=== PATIENT | male | born 1960 | race Caucasian/White ===

== ENCOUNTER 2017-04-26 13:08 | Emergency (ER) | payer MEDICARE, MEDICAID ==
[~2017-04-26] VITALS: Ht 175.3 cm; Wt 116.0 kg
[~2017-04-26 13:08] MED LIST: ASPI81TA63; ASPI81TA83 OR; ATEN50TA2; ATEN50TA2 OR; CETI10TA; DEPA500T; DEPA500T OR; GEOD60CA; GEOD60CA OR; LASI20TA PO; LISI10TA4; TRAZ100T OR; TRAZ150T; ZIPR80CAP OR; prolixin IM
[2017-04-26] MEDS ORDERED: DIVA250T7 PO (13:23)
[2017-04-26] MEDS ORDERED: METO1TAB32 PO (13:23)
[2017-04-26] MEDS ORDERED: ARIS1.6I SC (13:23)
[2017-04-26] MEDS ORDERED: LISI10TA4 PO (13:23)
[2017-04-26] MEDS ORDERED: PANT40TA2 PO (13:23)
[2017-04-26] MEDS ORDERED: BENZ-52 PO (13:23)
[2017-04-26] MEDS ORDERED: FLUTISP (13:23)
[2017-04-26 15:00] LABS: MEAN CORPUSCULAR HEMOGLOBIN 30.9 pg (27.0-33.0); MEAN CORPUSCULAR HGB CONC 33.6 g/dl (32.0-36.5); PLATELET COUNT, AUTOMATED 187 10^3/uL (150-450); RED CELL DISTRIBUTION WIDTH 13.2 % (11.5-14.5); WHITE BLOOD COUNT 7.9 10^3/uL (4.0-10.0)
[2017-04-26 15:28] LABS: ALBUMIN 3.7 GM/DL (3.2-5.2); ALBUMIN/GLOBULIN RATIO 1.06 (1.00-1.93); ALKALINE PHOSPHATASE 100 U/L (45-117); ALT/SGPT 24 U/L (12-78); ANION GAP 7 MEQ/L (8-16); AST/SGOT 12 U/L (15-37); BILIRUBIN,DIRECT 0.1 MG/DL (0.0-0.2); BILIRUBIN,TOTAL 0.5 MG/DL (0.2-1.0); BLOOD UREA NITROGEN 18 MG/DL (7-18); CALCIUM LEVEL 9.4 MG/DL (8.5-10.1); CARBON DIOXIDE LEVEL 28 MEQ/L (21-32); CHLORIDE LEVEL 104 MEQ/L (98-107); CREATININE FOR GFR 1.35 MG/DL (0.70-1.30); GLUCOSE, FASTING 160 MG/DL (70-105); POTASSIUM SERUM 4.5 MEQ/L (3.5-5.1); SODIUM LEVEL 139 MEQ/L (136-145); TOTAL PROTEIN 7.2 GM/DL (6.4-8.2)
[2017-04-26 16:49] LABS: METHADONE URINE NEGATIVE (NEGATIVE)
[2017-04-26] MEDS ORDERED: PANTOPRAZOLE 40MG TAB (PROTONIX) PO ONE (20:30)
[2017-04-26] MEDS ORDERED: LISINOPRIL 10 MG TAB PO ONE (20:30)
[2017-04-26] MEDS ORDERED: BENZTROPINE 0.5 MG TAB PO ONE (20:30)
[2017-04-26] MEDS ORDERED: DIVALPROEX 250 MG TAB PO ONE (20:30)
[2017-04-26] MEDS ORDERED: ASPI81CH PO (20:46)
[2017-04-26] MEDS ORDERED: PATIENT COMMENT (20:46)
[2017-04-27] MEDS ORDERED: OLANZapine INTRAMUSCULAR 10 MG VIAL (S0166) IM ONE (01:00)
[2017-04-27 02:11] VITALS: BP 179/90
--- NOTE | 2017-04-27 07:21 | ECGEPIP ---
Stationary ECG Study [facility] - ED Test Date: 2017-04-27 Pat Name: REMY ALVARADO Department: Room: - Gender: M Bulker: : 1960 Requested By: JAMIE Maloney Order Number: [id number] Reading MD: Braxton Lopez Measurements Intervals Armstrong Rate: 70 P: 41 [place]: 140 QRS: 5 QRSD: 94 T: 46 QT: 393 QTc: 425 Interpretive Statements SINUS RHYTHM NO PRIORS Electronically Signed On 04-27-2017 7:21:33 EDT by Braxton Lopez
== END 2017-04-27 02:31 ==
LOC: M ED 13:08
DX: F99 Mental disorder, not otherwise specified (principal); E11.9 Type 2 diabetes mellitus without complications; I11.0 Hypertensive heart disease with heart failure; I50.9 Heart failure, unspecified; F20.9 Schizophrenia, unspecified; M10.9 Gout, unspecified; K21.9 Gastro-esophageal reflux disease without esophagitis; Z79.899 Other long term (current) drug therapy; Z79.82 Long term (current) use of aspirin; Z88.8 Allergy status to other drugs, medicaments and biological substances; Z91.018 Allergy to other foods; J30.89 Other allergic rhinitis; Z87.891 Personal history of nicotine dependence
CPT/HCPCS: 36415; 80048; 80076; 80307; 84443; 85027; 93005; 96372; 99285; G0480

== ENCOUNTER → 2018-05-02 | Outpatient (REF) | payer MEDICARE, MEDICAID ==
[2018-05-02 12:27] LABS: BASO # 0.1 10^3/uL (0.0-0.2); EOS # 0.4 10^3/uL (0.0-0.50); EOS % 4.8 % (0.0-3.0); HEMATOCRIT 40.7 % (42.0-52.0); HEMOGLOBIN 13.5 g/dl (13.5-17.5); IMMATURE GRANULOCYTE % 0.3 % (0-3.0); LYMPH # 3.1 10^3/uL (1.5-4.5); LYMPH % 35.3 % (24.0-44.0); MEAN CORPUSCULAR HGB CONC 33.2 g/dl (32.0-36.5); MEAN CORPUSCULAR VOLUME 93.3 fl (80.0-96.0); MONO # 1.1 10^3/uL (0.0-0.8); MONO % 11.8 % (0.0-5.0); NEUTROPHILS # 4.2 10^3/uL (1.8-7.7); NEUTROPHILS % 46.8 % (36.0-66.0); PLATELET COUNT, AUTOMATED 238 10^3/uL (150-450); RED BLOOD COUNT 4.36 10^6/uL (4.30-6.10); RED CELL DISTRIBUTION WIDTH 12.5 % (11.5-14.5); WHITE BLOOD COUNT 8.9 10^3/uL (4.0-10.0)
[2018-05-02 12:37] LABS: ESTIMATED AVERAGE GLUCOSE 192 MG/DL (60-110); HEMOGLOBIN A1c 8.3 %
[2018-05-02 17:08] LABS: ALBUMIN 3.4 GM/DL (3.2-5.2); ALKALINE PHOSPHATASE 114 U/L (45-117); ALT/SGPT 29 U/L (12-78); ANION GAP 9 MEQ/L (8-16); AST/SGOT 17 U/L (7-37); BILIRUBIN,DIRECT 0.1 MG/DL (0.0-0.2); BILIRUBIN,TOTAL 0.4 MG/DL (0.2-1.0); BLOOD UREA NITROGEN 15 MG/DL (7-18); CALCIUM LEVEL 9.3 MG/DL (8.5-10.1); CARBON DIOXIDE LEVEL 29 MEQ/L (21-32); CHLORIDE LEVEL 104 MEQ/L (98-107); CHOLESTEROL LEVEL 129 MG/DL (<200); CHOLESTEROL RISK RATIO 2.744 (<5); GLOMERULAR FILTRATION RATE > 60.0 (>56); GLUCOSE, FASTING 156 MG/DL (70-100); HDL CHOLESTEROL 47 MG/DL (>40); LDL CHOLESTEROL 48 MG/DL (<100); NON-HDL-C 82 MG/DL; PHOSPHORUS LEVEL 3.6 MG/DL (2.5-4.9); POTASSIUM SERUM 4.3 MEQ/L (3.5-5.1); SODIUM LEVEL 142 MEQ/L (136-145); TOTAL PROTEIN 6.8 GM/DL (6.4-8.2); TRIGLYCERIDES LEVEL 171 MG/DL (<150)
[2018-05-02 17:16] LABS: TOTAL 25(OH) VITAMIN D 20.4 NG/ML (30.0-100.0)
== END ==
LOC: M LABDRAWC 09:09
DX: F20.9 Schizophrenia, unspecified (principal)
CPT/HCPCS: 82248

== ENCOUNTER 2018-08-19 12:41 | Inpatient (IN) | payer MEDICARE, MEDICAID ==
[~2018-08-19] VITALS: Ht 175.3 cm; Wt 116.0 kg
[~2018-08-19 12:41] MED LIST changes: +ARIS1.6I SC; +ASPI81CH PO; +BENZ-52 PO; +DIVA250T7 PO; +FLUTISP; +LISI10TA4 PO; +METO1TAB32 PO; +PANT40TA3 PO; +PATIENT COMMENT
[2018-08-19] MEDS ORDERED: ATOR40TA75 PO (13:19)
[2018-08-19] MEDS ORDERED: HYDROCHLOROTHIAZIDE PO (13:19)
[2018-08-19] MEDS ORDERED: INVE156I IM (13:19)
[2018-08-19] MEDS ORDERED: LISI40TA PO (13:19)
[2018-08-19] MEDS ORDERED: CHLOROTHIAZIDE PO (13:19)
[2018-08-19] MEDS ORDERED: ZYPR10TA PO (13:19)
[2018-08-19] MEDS ORDERED: METFORMIN PO (13:19)
[2018-08-19 13:30] VITALS: BP 192/96
[2018-08-19] MEDS ORDERED: cloNIDine 0.1 MG TAB PO ONE (13:30)
--- NOTE | 2018-08-19 13:57 | REP ---
Chest two views HISTORY: Hemoptysis Comparison: 04/26/2007 The lungs are clear. The heart is normal in size. The pulmonary vasculature is normal in appearance. The bony structure is intact. IMPRESSION: No acute disease. Electronically Signed by Scar Burnette MD 08/19/2018 01:48 P
--- NOTE | 2018-08-19 14:05 | REP ---
A CT of the abdomen and pelvis without IV and oral contrast: There are no comparisons. The visualized lower lung weber are unremarkable. The unenhanced hepatic parenchyma is unremarkable. The gallbladder, pancreas and spleen are unremarkable. The adrenals are unremarkable. The right and left kidneys are unremarkable except for A 1.7 cm in exophytic simple cyst at the mid pole of the right kidney. The abdominal aorta is unremarkable. There are normal-sized periaortic nodes. There is no bowel distension or obstruction. No diverticulitis or diverticulosis. Pelvis: The appendix is unremarkable. The bladder is unremarkable. There is no adenopathy or ascites. There are multiple nodules in the subcutaneous fat of the buttocks bilaterally, likely injection granulomas. Multiple level degenerative disc disease in the lumbar and lower thoracic spine. Impression: Multiple injection granulomas in the subcutaneous fat of the buttocks bilaterally. Otherwise, negative CT of the abdomen and pelvis. Electronically Signed by Sb Escalante MD 08/19/2018 01:55 P
[2018-08-19 14:35] LABS: MB/CK RELATIVE INDEX 2.58 (< OR =4); TROPONIN I 0.02 NG/ML (< 0.10)
[2018-08-19 14:41] LABS: ACETAMINOPHEN LEVEL < 2.0 UG/ML (10.0-30.0); ALBUMIN 3.4 GM/DL (3.2-5.2); ALT/SGPT 34 U/L (12-78); BILIRUBIN,DIRECT 0.1 MG/DL (0.0-0.2); BILIRUBIN,TOTAL 0.4 MG/DL (0.2-1.0); BLOOD UREA NITROGEN 17 MG/DL (7-18); CALCIUM LEVEL 9.6 MG/DL (8.5-10.1); CARBON DIOXIDE LEVEL 30 MEQ/L (21-32); CHLORIDE LEVEL 101 MEQ/L (98-107); CREATININE FOR GFR 1.21 MG/DL (0.70-1.30); ETHYL ALCOHOL (ETHANOL) < 0.003 % (0.000-0.010); GLOMERULAR FILTRATION RATE > 60.0 (>56); GLUCOSE, FASTING 358 MG/DL (70-100); POTASSIUM SERUM 4.3 MEQ/L (3.5-5.1); SALICYLATE LEVEL 1.9 MG/DL (5.0-30.0); SODIUM LEVEL 136 MEQ/L (136-145); THYROID STIMULATING HORMONE 0.918 uIU/ML (0.358-3.740); TOTAL PROTEIN 6.9 GM/DL (6.4-8.2)
[2018-08-19 14:58] LABS: HEMATOCRIT 38.6 % (42.0-52.0); HEMOGLOBIN 13.1 g/dl (13.5-17.5); MEAN CORPUSCULAR HEMOGLOBIN 30.4 pg (27.0-33.0); MEAN CORPUSCULAR HGB CONC 33.9 g/dl (32.0-36.5); MEAN CORPUSCULAR VOLUME 89.6 fl (80.0-96.0); PLATELET COUNT, AUTOMATED 221 10^3/uL (150-450); RED BLOOD COUNT 4.31 10^6/uL (4.30-6.10); WHITE BLOOD COUNT 9.6 10^3/uL (4.0-10.0)
[2018-08-19] MEDS ORDERED: HumuLIN R (REGULAR) INSULIN (NovoLIN R) **100U/ML** PER UNIT SC STA (16:10)
[2018-08-19] MEDS ORDERED: HYDR25TAB PO (16:23)
[2018-08-19] MEDS ORDERED: METF500T4 PO (16:23)
[2018-08-19 18:31] LABS: AMPHETAMINES LEVEL URINE NEGATIVE (NEGATIVE); BARBITURATES URINE NEGATIVE (NEGATIVE); BENZODIAZEPINES URINE NEGATIVE (NEGATIVE); CANNABINOIDS URINE NEGATIVE (NEGATIVE); COCAINE METABOLITE URINE NEGATIVE (NEGATIVE); METHADONE URINE NEGATIVE (NEGATIVE); OPIATES URINE NEGATIVE (NEGATIVE); PHENCYCLIDINE URINE NEGATIVE (NEGATIVE)
[2018-08-19] MEDS ORDERED: HumuLIN R (REGULAR) INSULIN (NovoLIN R) **100U/ML** PER UNIT IV ONE (19:15)
[2018-08-19] MEDS ORDERED: metFORMIN (GLUCOPHAGE) 500 MG TAB PO ONE (19:45)
[2018-08-19] MEDS ORDERED: OLANZapine 10 MG TAB PO ONE (19:45)
[2018-08-19] MEDS ORDERED: MAALOX 30 ML SUSP *UDC PO PRN (20:45)
[2018-08-19] MEDS ORDERED: MOM 30ML SUSPENSION UDC PO PRN (20:45)
[2018-08-19] MEDS ORDERED: ACETAMINOPHEN TAB 650MG DOSE (2X325MG) PO PRN (20:45)
[2018-08-19] MEDS ORDERED: traZODone 50 MG TAB PO PRN (20:45)
[2018-08-19] MEDS ORDERED: ACETAMINOPHEN TAB 650MG DOSE (2X325MG) PO ONE (21:30)
[2018-08-19 23:15] VITALS: BP 148/90
[2018-08-20] MEDS: ASPIRIN 81 MG ENTERIC TAB PO SCH ×2 (00:39→21:00)
[2018-08-20] MEDS ORDERED: FLUBLOK(EGG FREE)(QUAD)INFLUENZA VACC 0.5ML SYRINGE (90682)18YRS&OLDER IM ONE (09:00)
[2018-08-20] MEDS: NICOTINE 21MG/24HR 1 EA TRANSDERMAL TD SCH (09:00)
[2018-08-20] MEDS: ATORVASTATIN 20 MG TAB PO SCH (09:00)
[2018-08-20] MEDS: LISINOPRIL 40 MG TAB PO SCH (09:00)
[2018-08-20] MEDS: hydroCHLOROthiazide 25 MG TAB PO SCH (09:00)
[2018-08-20] MEDS ORDERED: GLUCOSE 4 GM CHEW TABLET PO PRN (10:30)
[2018-08-20] MEDS ORDERED: GLUCAGON FOR INJ 1 MG VIAL (J1610) SC PRN (10:30)
[2018-08-20] MEDS ORDERED: DEXTROSE 50% 50 ML SYRINGE IV PRN (10:30)
--- NOTE | 2018-08-20 10:37 | HPEPDOC ---
[facility] Medical History & Physical Date of Admission Aug 19, 2018 History and Physical PCP: Dr Benjamin ATTENDING: Dr. Sterling Miranda HPI: 58 yo M admitted to [facility] for schizophrenia, being medically examined today. Patient has been noted to be agitated this morning, yelling in the hallway, refused morning medication. Patient declines to participate with history or physical exam at this time, history is taken from the chart. According to emergency department records the patient had presented with TLS staff reporting chest aching however the patient went on to describe "spiders rooting in my nasal cavity and feeding on a piece of meat in my esophagus". The pt has not reported any further chest discomfort to staff at this time. TLS staff in the emergency department reported the patient had been refusing some of his medications recently. PMHx: Hypertension Dyslipidemia NIDDM Allergic rhinitis Schizophrenia Unsteady gait, uses cane PSHX: None SOCHX: Resides in: [facility] Marital Status: Single Kids: None Employment: Unemployed Tobacco use: Smoker ETOH: Denies Illicit Drugs: Denies IV Drug Use: Denies Tattoos done unprofessionally: Denies FAMHX: Patient is unable to provide history at this time. ROS: Patient declines to provide any additional history at this time. PE: The pt is noted to be pacing in the hallway, agitated. Ambulating with a cane, appears steady on feet. Vital Signs Label Value Date Time Patient Temperature 97.9 degrees F 08/19/182314 Temperature Source Temporal 08/19/182314 Pulse 89 08/19/182314 Respiratory Rate 20 bpm 08/19/182314 Blood Pressure Assessment 148/90 (109) 08/19/182314 Bedside Pulse Oximetry 99 % 08/19/181947 Item Value Date Time Oxygen Delivery Method Room Air 08/19/181947 EKG: pending A&P: 58 yo M admitted to [facility] for schizophrenia 1. Psych. Plan per Psychiatry. Obtain baseline EKG to assure the safety of psychiatric medications as they can prolong the QT interval. 2. Nicotine dependence. Patch available. 3. NIDDM. Consistent carbohydrate diet. Continue metformin 500 mg daily. SSI before meals, at bedtime. Add hemoglobin A1c to labs. 4. Follow up with PCP on discharge. 5. Obesity. BMI 37.8. Complicates care. TSH is noted within normal limits. 6. Hypertension. Continue aspirin 81 mg daily. Continue lisinopril 40 mg by mouth daily. Continue hydrochlorothiazide 25 mg by mouth daily. Patient is refusing to take his medications at this time. Monitor. 7. Dyslipidemia. Continue atorvastatin 40 mg by mouth daily. 8. Unsteady gait. Patient uses a cane to assist with ambulation. PT evaluation pending. Fall precautions. 9. Chest discomfort. Pt has not reported any further discomfort. EKG pending. CIP/trop in ED unremarkable. 10. Staff member Angelo assisted in attempting exam. Vital Signs Vital Signs Date Time Temp Pulse Resp B/P (MAP) Pulse Ox O2 Delivery O2 Flow Rate FiO2 08/19/18 23:15 97.9 89 20 148/90 (109) 08/19/18 19:48 99 Room Air Laboratory Data Labs 24H Laboratory Tests 2 08/19/18 13:36: Nucleated Red Blood Cells % (auto) 0.0, Anion Gap 5L, Glomerular Filtration Rate > 60.0, Calcium Level 9.6, Aspartate Amino Transf (AST/SGOT) 18, Alanine Aminotransferase (ALT/SGPT) 34, Alkaline Phosphatase 120H, Total Bilirubin 0.4, Direct Bilirubin 0.1, Total Creatine Kinase 151, Creatine Kinase MB 4.0H, Creatine Kinase MB Relative Index 2.58, Troponin I 0.02, Total Protein 6.9, Albumin 3.4, Albumin/Globulin Ratio 0.97L, Thyroid Stimulating Hormone (TSH) 0.918, Salicylates Level 1.9L, Urine Amphetamines Screen NEGATIVE, Urine Benzodiazepines Screen NEGATIVE, Urine Opiates Screen NEGATIVE, Urine Methadone Screen NEGATIVE, Acetaminophen Level < 2.0L, Urine Barbiturates Screen NEGATIVE, Urine Phencyclidine Screen NEGATIVE, Urine Cocaine Metabolite Screen NEGATIVE, Urine Cannabinoids Screen NEGATIVE, Ethyl Alcohol Level < 0.003 08/19/18 17:23: Bedside Glucose (Misc Panel) 307H 08/19/18 19:15: Bedside Glucose (Misc Panel) 367H 08/19/18 21:32: Bedside Glucose (Misc Panel) 176H CBC/BMP Laboratory Tests 08/19/18 13:36 Red Blood Count 4.31, Mean Corpuscular Volume 89.6, Mean Corpuscular Hemoglobin 30.4, Mean Corpuscular Hemoglobin Concent 33.9, Red Cell Distribution Width 12.4 Home Medications Scheduled (Aspirin) 81 Mg Chw, 81 MG PO QHS Atorvastatin Calcium (Atorvastatin Calcium) 40 Mg Tab, 40 MG PO DAILY Hydrochlorothiazide (Hydrochlorothiazide) 25 Mg Tab, 25 MG PO DAILY Lisinopril (Lisinopril) 40 Mg Tab, 40 MG PO DAILY Metformin Hydrochloride (Metformin HCl ER) 500 Mg Tab, 500 MG PO QHS Olanzapine (Zyprexa) 10 Mg Tab, 10 MG PO QHS Paliperidone Palmitate (Invega Sustenna) 156 Mg/Ml Inj, 156 MG IM QMONTH Allergies Coded Allergies: Ambrosia Artemisiifolia (Ragweed) (Verified Allergy, Unknown, 10/08/12) Ascorbic Acid & Derivatives (Verified Allergy, Unknown, 10/08/12) Benztropine (Verified Allergy, Unknown, 10/08/12) Pork (Verified Allergy, Unknown, 12/30/06) Red Dye (Verified Allergy, Unknown, IN BENADRYL, 10/08/12) Diphenhydramine (Verified Adverse Reaction, Unknown, 04/26/17) Haloperidol (Verified Adverse Reaction, Unknown, EPS (CAN'T STOP MOVING), 10/08/12) Carolyn Toth Aug 20, 2018 10:37
[2018-08-20] MEDS: HumaLOG INSULIN (NovoLOG) PER UNIT SC SCH ×3 (12:00→21:00)
--- NOTE | 2018-08-20 14:07 | MHHPEPDOC ---
General Date Of Admission: Aug 19, 2018 Legal Status: 9.39 Chief Complaint As per ED report: "I was coughing up blood" History of Present Illness HISTORY OF THE PRESENT ILLNESS: Patient is a 58 -year-old , male, who as per ED report: "Patient arrived w/complaints of cardiac issues, which have been evaluated & cleared medically. During medical evaluation he reported having spiders inside of his body, as well as other bizarre/deluded ideas. During MHE patient was calm & sleepy, although remained awake to adequately interview. He continued to express belief that he has spiders throughout his upper body, including "nests" in his nasal passages & "colonies" feeding on meat lodged in his esophagus. Patient was able to accurately verbalize his orientation x 3, however much of what he reported otherwise was rambling, tangential & incoherent. Staff from [facility] advised that patient has been refusing some of his regular meds, which patient admitted as well. He then proceeded to offer a reason for this, which contained no logic & could not be easily followed. On direct query, patient stated that he has been sleeping fine, however staff member refuted this & suggested that patient has not been sleeping well at all. Patient is known to this insurance underwriter sales from many previous ED interactions. When ill (both acutely & chronically), patient almost always references spiders in one way or another. Staff reports that patient had been at his baseline & doing well until fairly recently, when he began refusing some meds. She reports that he has been in decline since, noting that he was actually scheduled for his IM meds in he clinic today (which he missed because he was here).". Psychiatric Review of Systems Depression (2 or more weeks): other (Patient is psychotic, he can't give me reliable information) Jeanie (4 or more days of): denies (Patient is psychotic, he can't provide reliable information) Psychosis: delusions (He thinksthere's spiders living inside of him, eating his flesh, his internal organs, causing him bleeding), paranoia, other (He might be experiencing auditory and visual hallucinations) PTSD: other (Unknown. Patient is psychotic, he can't provide with reliable information) Anxiety: other (He can't provide reliable information because he is psychotic) Anxiety/ 6 months or more of: other (patient is psychotic, he can't provide with psychiatric information) Past Psychiatric History Previous Psychiatric Diagnosis: Schizoaffective disorder, schizophrenia, paranoid type Previous Psychiatric Admissions: Patient has been hospitalized several times at different hospitals including [facility] Suicide Attempts: Unknown Psychiatric Follow-up: Lives at [facility] Psychiatric medications: Apparently yesterday he was due for his Invega Sustenna 156 mgs., but he missed it. Past Medical History Medical Problems Unknown, patient is psychotic at this time, he can't provide reliable information Hospitalizations: Yes Family Medical/Psychiatric HX Medical Problems Unknown. Patient is psychotic at this time, he can't provide with reliable information Addiction History other (Unknown. Patient is psychotic, he can't provide reliable information) Social History Childhood: Unknown, patient is psychotic, he can't provide reliable information Abuse/Trauma: unknown, patient is psychotic, he can't provide reliable information Current Living Situation: Lives at [facility] Education: Unknown. Employment: Unemployed, patient is disabled Social Support: [facility] staff Legal: Unknown Marital: Unknown Mental Status Examination General Appearance: unkempt, disheveled, hospital scubs/clothing Build: overweight Demeanor: mistrustful, guarded Eye Contact: intense Activity: anxious, hostile Behavior: cooperative, resistant, agitated Speech: slurred, spontaneous Mood: anxious, angry, irritable Affect: inappropriate, labile, congruent, anxious, hostile, disorganized Thought Process: incoherent, circumstantial, tangential, loose Thought Content (Delusions): somatic Thought Content (Other): preoccupied, internal-stimuli, appears paranoid Thought Content (Aggressive): none reported Perception (Hallucinations): other (He might be experiencing hallucinations) Perception (Other): none reported Cognition (Impairment of): memory, attention/concentration Cognition(Intelligence Est.): average Oriented: Awake, Alert Insight: poor Judgment: Poor Psychosis: Associations, Abstract Thinking, Psychotic Perceptions Diagnoses 1. Paranoid schizophrenia Assessment Patient has refused to eat, he refuses to take his medications but he told me that he would take his Lisinopril 40 mgs and Zyprexa 10 mgs. when I talked to him about his Invega DALTON, he said he would probably take it if he would eat but if he would eat the right lettuce, but they keep giving the wrong lettuce, he says he might get intoxicated. Patient doesn't want to give up his cane, tw asked him to exchange it for a walker but he refused. Initial Treatment Plan 1. Patient was admitted on a [9.39] status. 2. Complete history was obtained. 3. With patients permission, family will be contacted and database will be expanded. 4. Patients medication regimen will be reviewed and changed accordingly. 5. Patient will be provided with protected environment. 6. Patient will be treated with individual, group, and milieu therapies. 7. Patient will receive supportive psych-education. 8. Discharge planning will commence immediately. 9. Outpatient follow-up treatment will be strongly recommended. 10. The initial treatment plan will focus initially on: * altered thoughts * altered perceptions * Risk for self harm * risk for harming other people ESTIMATED LENGTH OF STAY: 5-7 DAYS. TIME SPENT COUNSELING AND COORDINATING INITIAL CARE: 45 minutes. Vital Signs Vital Signs Date Time Temp Pulse Resp B/P (MAP) Pulse Ox O2 Delivery O2 Flow Rate FiO2 08/19/18 23:15 97.9 89 20 148/90 (109) 08/19/18 19:48 99 Room Air Laboratory Data 24H Labs Laboratory Tests 2 08/19/18 17:23: Bedside Glucose (Misc Panel) 307H 08/19/18 19:15: Bedside Glucose (Misc Panel) 367H 08/19/18 21:32: Bedside Glucose (Misc Panel) 176H Medications Scheduled (Aspirin) 81 Mg Chw, 81 MG PO QHS, (Reported) Atorvastatin Calcium (Atorvastatin Calcium) 40 Mg Tab, 40 MG PO DAILY, (Reported) Hydrochlorothiazide (Hydrochlorothiazide) 25 Mg Tab, 25 MG PO DAILY, (Reported) Lisinopril (Lisinopril) 40 Mg Tab, 40 MG PO DAILY, (Reported) Metformin Hydrochloride (Metformin HCl ER) 500 Mg Tab, 500 MG PO QHS, (Reported) Olanzapine (Zyprexa) 10 Mg Tab, 10 MG PO QHS, (Reported) Paliperidone Palmitate (Invega Sustenna) 156 Mg/Ml Inj, 156 MG IM QMONTH, (Reported) Allergies Coded Allergies: Ambrosia Artemisiifolia (Ragweed) (Verified Allergy, Unknown, 10/08/12) Ascorbic Acid & Derivatives (Verified Allergy, Unknown, 10/08/12) Benztropine (Verified Allergy, Unknown, 4/2/13) Pork (Verified Allergy, Unknown, 12/30/06) Red Dye (Verified Allergy, Unknown, IN BENADRYL, 10/08/12) Diphenhydramine (Verified Adverse Reaction, Unknown, 04/26/17) Haloperidol (Verified Adverse Reaction, Unknown, EPS (CAN'T STOP MOVING), 10/08/12) VU GOULD MD Aug 20, 2018 14:07
--- NOTE | 2018-08-20 18:52 | ECGEPIP ---
Stationary ECG Study [facility] - ED Test Date: 2018-08-19 Pat Name: REMY ALVARADO Department: Room: - Gender: M Land Title Examiner: : 1960 Requested By: Zaida Zhang Order Number: [id number] Reading MD: Zaida Zhang Measurements Intervals Cressey Rate: 76 P: 64 NC: 145 QRS: 22 QRSD: 101 T: 56 QT: 395 QTc: 444 Interpretive Statements SINUS RHYTHM SIMILAR 04/27/17 Electronically Signed On 08-20-2018 18:52:06 EST by Zaida Zhang
[2018-08-20] MEDS: OLANZapine 10 MG TAB PO SCH (21:00)
[2018-08-20] MEDS: metFORMIN XR 500MG TAB *GLUCOPHAGE XR PO SCH (21:00)
[2018-08-21] MEDS: HumaLOG INSULIN (NovoLOG) PER UNIT SC SCH ×4 (06:35→21:00)
[2018-08-21 06:39] VITALS: BP 146/66
[2018-08-21 08:53] LABS: HEMATOCRIT 40.7 % (42.0-52.0); HEMOGLOBIN 13.8 g/dl (13.5-17.5); MEAN CORPUSCULAR HEMOGLOBIN 30.9 pg (27.0-33.0); MEAN CORPUSCULAR HGB CONC 33.9 g/dl (32.0-36.5); MEAN CORPUSCULAR VOLUME 91.1 fl (80.0-96.0); PLATELET COUNT, AUTOMATED 218 10^3/uL (150-450); RED BLOOD COUNT 4.47 10^6/uL (4.30-6.10); WHITE BLOOD COUNT 8.6 10^3/uL (4.0-10.0)
[2018-08-21] MEDS ORDERED: PALIPERIDONE PALMITATE 234 MG/1.5 ML INJ (INVEGA SUSTENNA)(J2426) IM SCH (09:00)
[2018-08-21] MEDS: NICOTINE 21MG/24HR 1 EA TRANSDERMAL TD SCH (09:00)
[2018-08-21] MEDS ORDERED: PALIPERIDONE PALMITATE 156 MG/1ML INJ(INVEGA SUSTENNA)(J2426) IM SCH (09:00)
[2018-08-21] MEDS: hydroCHLOROthiazide 25 MG TAB PO SCH (09:00)
--- NOTE | 2018-08-21 09:19 | IPNPDOC ---
Date Seen The patient was seen on 08/21/18. Progress Note HPI: 58 yo M admitted to [facility] for schizophrenia, being medically examined today. Patient has been noted to be agitated this morning, yelling in the hallway, refused morning medication. Patient declines to participate with history or physical exam at this time, history is taken from the chart. According to emergency department records the patient had presented with TLS staff reporting chest aching however the patient went on to describe "spiders rooting in my nasal cavity and feeding on a piece of meat in my esophagus". The pt has not reported any further chest discomfort to staff at this time. TLS staff in the emergency department reported the patient had been refusing some of his medications recently. I am requested to reevaluate the patient this morning related to reported hem optysis. According to staff the patient has not had any hemoptysis well on the unit. Occasional cough which has been nonproductive. The patient has continued to refuse all medications. The patient states he had breakfast this morning. He is drinking fluids. He is carrying coffee throughout the halls. The patient denies any hemoptysis, coughing or sputum production and states that previously a cough was related to "a reaction to the bugs I carry". He also again reports he previously had nasal discharge "frpm my bugs". The patient reports no verbalizes concerns at this time. PMHx: Hypertension Dyslipidemia NIDDM Allergic rhinitis Schizophrenia Unsteady gait, uses cane PSHX: None PE: GEN: 58 yo M, appears stated age. Appears unkept. No acute distress. Alert and oriented x 3. HEENT: Normocephalic, atraumatic. Sclera are nonicteric. Conjunctiva without injection. No nasal drainage noted. Moist mucous membranes. Dentition poor. CHEST: Regular rate and rhythm, +S1, +S2 LUNGS: Clear to auscultation bilaterally. No wheezes, rales, or rhonchi. Breathing appears symmetric and easy. Patient is speaking in full sentences. No accessory muscle use. No cough is noted on exam. ABD: Round, soft, non-tender, non-distended. +Bowel sounds throughout. EXT: Pulses 2+ bilaterally dorsalis pedis and radial. No lower extremity edema appreciated. SKIN: Fortine, dry, warm. No rashes. NEURO: Alert and oriented x 3. No focal deficits appreciated. EKG: SINUS RHYTHM SIMILAR 04/27/17 Electronically Signed On 08-20-2018 18:52:06 EST by Zaida Zhang Chest x-ray No acute disease. Electronically Signed by Scar Burnette MD 08/19/2018 01:[address] abdomen/pelvis Multiple injection granulomas in the subcutaneous fat of the buttocks bilaterally. Otherwise, negative CT of the abdomen and pelvis A&P: 58 yo M admitted to [facility] for schizophrenia 1. Psych. Plan per Psychiatry. EKG on file UA with reflex culture pending. 2. Nicotine dependence. Patch available. 3. NIDDM. Consistent carbohydrate diet. Continue metformin 500 mg daily. SSI before meals, at bedtime. Hemoglobin A1c is noted to be 11. Last fingerstick blood sugar 08/19 was noted to be 176. The patient has been refusing to take his medications and refusing fingerstick blood sugar/SSI coverage. Reinforced with the patient today. 4. Follow up with PCP on discharge. 5. Obesity. BMI 37.8. Complicates care. TSH is noted within normal limits. 6. Hypertension. Continue aspirin 81 mg daily. Continue lisinopril 40 mg by mouth daily. Continue hydrochlorothiazide 25 mg by mouth daily. Patient is refusing to take his medications at this time. Monitor. 7. Dyslipidemia. Continue atorvastatin 40 mg by mouth daily. 8. Unsteady gait. Patient uses a cane to assist with ambulation. PT evaluation completed Fall precautions. 9. Chest discomfort. Pt has not reported any further discomfort. EKG on file. CIP/trop in ED unremarkable. 10. Cough/history of hemoptysis. The patient states this has not been occurring for some time and is related to his "bugs." Denies any sputum production at this time. The patient is afebrile. Vital signs have been stable. Respiratory rate 16, heart rate 82, oxygen saturation 99% on room air. Update CBC/CMP Chest x-ray completed on admission 08/19 is noted to be unremarkable. Request CT chest. 11. Anemia. Hemoglobin on admission noted to be 13.1. Update CBC. Request iron studies, B12, folate Request FOB. Monitor. 12. Staff member Angelo assisted in attempting exam. VS, I&O, 24H, Fishbone Vital Signs/I&O Vital Signs Date Time Temp Pulse Resp B/P (MAP) Pulse Ox O2 Delivery O2 Flow Rate FiO2 08/21/18 06:39 97.6 82 16 146/66 (92) 08/19/18 19:48 99 Room Air Laboratory Data 24H LABS Laboratory Tests 2 08/21/18 08:26: Nucleated Red Blood Cells % (auto) 0.0 CBC/BMP Laboratory Tests 08/21/18 08:26 Red Blood Count 4.47, Mean Corpuscular Volume 91.1, Mean Corpuscular Hemoglobin 30.9, Mean Corpuscular Hemoglobin Concent 33.9, Red Cell Distribution Width 12.6 Carolyn Toth Aug 21, 2018 09:19
[2018-08-21] MEDS: LISINOPRIL 40 MG TAB PO SCH (09:22)
[2018-08-21] MEDS: ATORVASTATIN 20 MG TAB PO SCH (09:22)
[2018-08-21 10:14] LABS: ALBUMIN 3.4 GM/DL (3.2-5.2); ALT/SGPT 41 U/L (12-78); BILIRUBIN,TOTAL 0.8 MG/DL (0.2-1.0); BLOOD UREA NITROGEN 13 MG/DL (7-18); CALCIUM LEVEL 9.4 MG/DL (8.5-10.1); CARBON DIOXIDE LEVEL 27 MEQ/L (21-32); CHLORIDE LEVEL 100 MEQ/L (98-107); CREATININE FOR GFR 1.27 MG/DL (0.70-1.30); FERRITIN 168 NG/ML (26-388); FOLATE > 24.0 NG/ML; GLOMERULAR FILTRATION RATE > 60.0 (>56); GLUCOSE, FASTING 304 MG/DL (70-100); IRON (FE) 81 UG/DL (65-175); PERCENT SATURATION 32.9 % (19.7-50.0); POTASSIUM SERUM 4.6 MEQ/L (3.5-5.1); SODIUM LEVEL 136 MEQ/L (136-145); TOTAL IRON BINDING CAPACITY 246 UG/DL (250-450); TOTAL PROTEIN 6.8 GM/DL (6.4-8.2); VITAMIN B12 LEVEL 881 PG/ML
[2018-08-21 18:00] VITALS: BP 147/92
[2018-08-21] MEDS: metFORMIN XR 500MG TAB *GLUCOPHAGE XR PO SCH (21:00)
[2018-08-21] MEDS: ASPIRIN 81 MG ENTERIC TAB PO SCH (21:56)
[2018-08-21] MEDS: OLANZapine 10 MG TAB PO SCH (21:56)
--- NOTE | 2018-08-21 22:00 | MHIPNPDOC ---
[facility] Progress Note Progress Note DATE OF SERVICE: 08/21/18 HISTORY: See below VITAL SIGNS: See below. NEW TEST RESULTS: See below CURRENT MEDICATIONS: See below. MENTAL STATUS EXAMINATION: General Appearance: unkempt, disheveled, hospital scubs/clothing Build: overweight Demeanor: mistrustful, guarded Eye Contact: intense Activity: anxious, hostile Behavior: cooperative, resistant, agitated Speech: slurred, spontaneous Mood: anxious, angry, irritable Affect: inappropriate, labile, congruent, anxious, hostile, disorganized Thought Process: incoherent, circumstantial, tangential, loose Thought Content (Delusions): somatic Thought Content (Other): preoccupied, internal-stimuli, appears paranoid Thought Content (Aggressive): none reported Perception (Hallucinations): other (He might be experiencing hallucinations) Perception (Other): none reported Cognition (Impairment of): memory, attention/concentration Cognition(Intelligence Est.): average Oriented: Awake, Alert Insight: poor Judgment: Poor Psychosis: Associations, Abstract Thinking, Psychotic Perceptions Diagnoses 1. Paranoid schizophrenia ASSESSMENT: The patient continues to exhibit psychotic symptoms but he is less agitated, less anxious and less irritable than yesterday. He accepted to have his long acting injectable form of Invega but instead of 156 mg I ordered 234 mg because I think he needs a stronger dose to control his illness. Overall, he was less anxious, less agitated and less irritable today. He was asking this afternoon when will he be discharged and I responded that I will have to reassess him tomorrow to let him know when he is ready to go back to [facility]. He refused his Zyprexa 10 mg at bedtime MANAGEMENT PLAN: We'll continue with the same treatment plan, patient probably will improve within the next couple of days as a result of receiving his long- acting injectable today. If he would be improved enough tomorrow, this feature writer will consider discharging him to [facility]. TIME SPENT: 15 minutes. Vital Signs Vital Signs Date Time Temp Pulse Resp B/P (MAP) Pulse Ox O2 Delivery O2 Flow Rate FiO2 08/21/18 18:00 97.7 76 18 147/92 (110) 08/19/18 19:48 99 Room Air Laboratory Data 24H Labs Laboratory Tests 2 08/21/18 08:26: Nucleated Red Blood Cells % (auto) 0.0, Anion Gap 9, Glomerular Filtration Rate > 60.0, Blood Urea Nitrogen 13, Creatinine 1.27, Sodium Level 136, Potassium Level 4.6, Chloride Level 100, Carbon Dioxide Level 27, Calcium Level 9.4, Aspartate Amino Transf (AST/SGOT) 36, Alanine Aminotransferase (ALT/SGPT) 41, Alkaline Phosphatase 113, Total Bilirubin 0.8#, Total Protein 6.8, Albumin 3.4, Iron Level 81, Total Iron Binding Capacity 246L, Transferrin % Saturation 32.9, Ferritin 168, Albumin/Globulin Ratio 1.00, Vitamin B12 Level 881, Folate > 24.0 08/21/18 12:05: Bedside Glucose (Misc Panel) 251H 08/21/18 12:55: Urine Color STRAW, Urine Appearance CLEAR, Urine pH 5.0, Urine Specific [place] 1.003, Urine Protein 1+H, Urine Glucose (UA) 3+H, Urine Ketones NEGATIVE, Urine Blood NEGATIVE, Urine Nitrite NEGATIVE, Urine Bilirubin NEGATIVE, Urine Urobilinogen 0.2, Urine Leukocyte Esterase NEGATIVE, Urine WBC (Auto) 1, Urine RBC (Auto) 0, Urine Hyaline Casts (Auto) 0, Urine Bacteria (Auto) NEGATIVE, Urine Squamous Epithelial Cells 0, Urine Sperm (Auto) 08/21/18 16:36: Bedside Glucose (Misc Panel) 265H CBC/BMP Laboratory Tests 08/21/18 08:26 Red Blood Count 4.47, Mean Corpuscular Volume 91.1, Mean Corpuscular Hemoglobin 30.9, Mean Corpuscular Hemoglobin Concent 33.9, Red Cell Distribution Width 12.6, Calcium Level 9.4, Aspartate Amino Transf (AST/SGOT) 36, Alanine Aminotransferase (ALT/SGPT) 41, Alkaline Phosphatase 113, Total Bilirubin 0.8 #, Total Protein 6.8, Albumin 3.4 Current Medications Current Medications Acetaminophen (Tylenol Tab) 650 mg Q6HP PRN PO HEADACHE or DISCOMFORT; Start 08/19/18 at 20:45 Al Hydrox/Mg Hydrox/Simethicone (Mylanta) 30 ml Q4HP PRN PO HEARTBURN/INDIGESTION; Start 08/19/18 at 20:45 Aspirin (Ecotrin) 81 mg QHS PO ; Start 08/20/18 at 00:39 Atorvastatin Calcium (Lipitor) 40 mg DAILY PO Last administered on 08/21/18at 09:22; Start 08/20/18 at 09:00 Dextrose (Dextrose 50%) 25 ml ASDIRECTED PRN IV SEE LABEL COMMENTS; Start 08/20/18 at 10:30 Glucagon (Glucagon) 1 mg ASDIRECTED PRN SC SEE LABEL COMMENTS; Start 08/20/18 at 10:30 Glucose (Glucose) 16 GM ASDIRECTED PRN PO SEE LABEL COMMENTS; Start 08/20/18 at 10:30 Home Med (Med Rec Complete!) ASDIRECTED XX ; Start 08/19/18 at 16:30; Stop 08/19/18 at 16:30; Status DC Hydrochlorothiazide (Hydrodiuril) 25 mg DAILY PO ; Start 08/20/18 at 09:00 Insulin Human Lispro (HumaLOG INSULIN) See Protocol Table AC SC Last administered on 08/21/18at 16:43; Start 08/20/18 at 12:00 Insulin Human Lispro (HumaLOG INSULIN) See Protocol Table QHS SC ; Start 08/20/18 at 21:00 Insulin Human Regular (HumuLIN R INSULIN) 12 units STAT STAT SC Last administered on 08/19/18at 16:10; Start 08/19/18 at 16:10; Stop 08/19/18 at 16:12; Status DC Lisinopril (Prinivil) 40 mg DAILY PO Last administered on 08/21/18at 09:22; Start 08/20/18 at 09:00 Magnesium Hydroxide (Milk Of Magnesia) 30 ml DAILYPRN PRN PO CONSTIPATION; Start 08/19/18 at 20:45 Metformin HCl (Glucophage Xr) 500 mg QHS PO ; Start 08/20/18 at 21:00 Nicotine (Nicoderm Cq 21mg) 1 patch DAILY TD ; Start 08/20/18 at 09:00 Olanzapine (ZyPREXA) 10 mg QHS PO ; Start 08/20/18 at 21:00 Paliperidone Palmitate (Invega Sustenna) 156 mg Q30D IM ; Start 08/21/18 at 09:00; Status Cancel Paliperidone Palmitate (Invega Sustenna) 234 mg Q30D IM Last administered on 08/21/18at 11:56; Start 08/21/18 at 09:00 Trazodone HCl (Desyrel) 50 mg QHSP PRN PO INSOMNIA; Start 08/19/18 at 20:45 Allergies Coded Allergies: Ambrosia Artemisiifolia (Ragweed) (Verified Allergy, Unknown, 10/08/12) Ascorbic Acid & Derivatives (Verified Allergy, Unknown, 10/08/12) Benztropine (Verified Allergy, Unknown, 10/08/12) Pork (Verified Allergy, Unknown, 12/30/06) Red Dye (Verified Allergy, Unknown, IN BENADRYL, 10/08/12) Diphenhydramine (Verified Adverse Reaction, Unknown, 04/26/17) Haloperidol (Verified Adverse Reaction, Unknown, EPS (CAN'T STOP MOVING), 10/08/12) VU GOULD MD Aug 21, 2018 21:50
[2018-08-22] MEDS: HumaLOG INSULIN (NovoLOG) PER UNIT SC SCH ×4 (06:24→20:15)
[2018-08-22] MEDS: LISINOPRIL 40 MG TAB PO SCH (08:48)
[2018-08-22] MEDS: ATORVASTATIN 20 MG TAB PO SCH (08:48)
[2018-08-22] MEDS: NICOTINE 21MG/24HR 1 EA TRANSDERMAL TD SCH (09:00)
[2018-08-22] MEDS: hydroCHLOROthiazide 25 MG TAB PO SCH (09:00)
[2018-08-22] MEDS ORDERED: metFORMIN (GLUCOPHAGE) 500 MG TAB PO SCH (18:00)
[2018-08-22] MEDS: OLANZapine 10 MG TAB PO SCH (20:14)
[2018-08-22] MEDS: ASPIRIN 81 MG ENTERIC TAB PO SCH (20:14)
[2018-08-23 06:14] VITALS: BP 176/77
[2018-08-23] MEDS: HumaLOG INSULIN (NovoLOG) PER UNIT SC SCH ×2 (06:36→12:00)
[2018-08-23 08:11] LABS: BLOOD UREA NITROGEN 18 MG/DL (7-18); CALCIUM LEVEL 8.9 MG/DL (8.5-10.1); CARBON DIOXIDE LEVEL 30 MEQ/L (21-32); CHLORIDE LEVEL 106 MEQ/L (98-107); CREATININE FOR GFR 1.12 MG/DL (0.70-1.30); GLOMERULAR FILTRATION RATE > 60.0 (>56); GLUCOSE, FASTING 190 MG/DL (70-100); SODIUM LEVEL 142 MEQ/L (136-145)
[2018-08-23] MEDS: NICOTINE 21MG/24HR 1 EA TRANSDERMAL TD SCH (09:00)
[2018-08-23] MEDS: hydroCHLOROthiazide 25 MG TAB PO SCH (09:00)
[2018-08-23] MEDS: ATORVASTATIN 20 MG TAB PO SCH (09:48)
[2018-08-23] MEDS: LISINOPRIL 40 MG TAB PO SCH (09:48)
[2018-08-23] MEDS ORDERED: INVE234I IM (11:37)
[2018-08-23] MEDS ORDERED: TRAZO50TA PO (11:37)
--- NOTE | 2018-08-26 22:18 | MHIPNPDOC ---
[facility] Progress Note Progress Note DATE OF SERVICE: 08/22/18 HISTORY: 58 year old male with history of schizophrenia, medication non compliance who resides at [facility], has gotten progressively decompensated. he was admitted to [facility] in the past, where he exhibited extremely violent behavior. He accepted his Invega Sustenna injection (234 mgs) yesterday VITAL SIGNS: See below. NEW TEST RESULTS: See below CURRENT MEDICATIONS: See below. MENTAL STATUS EXAMINATION: General Appearance: unkempt, disheveled, hospital scubs/clothing Build: overweight Demeanor: mistrustful, guarded Eye Contact: intense Activity: anxious, hostile Behavior: cooperative, resistant, agitated Speech: slurred, spontaneous Mood: anxious, angry, irritable Affect: inappropriate, labile, congruent, anxious, hostile, disorganized Thought Process: incoherent, circumstantial, tangential, loose Thought Content (Delusions): somatic Thought Content (Other): preoccupied, internal-stimuli, appears paranoid Thought Content (Aggressive): none reported Perception (Hallucinations): other (He might be experiencing hallucinations) Perception (Other): none reported Cognition (Impairment of): memory, attention/concentration Cognition(Intelligence Est.): average Oriented: Awake, Alert Insight: poor Judgment: Poor Psychosis: Associations, Abstract Thinking, Psychotic Perceptions Diagnoses 1. Paranoid schizophrenia ASSESSMENT: The patient is becoming more irritable and it could be because he is bored in [facility] where he doesn't have a lot of things to be entertained with, whereas at [facility], he gets entertained. He told me today he is not doing well "in this extremely controlled environment and he yelled several times at the staff because he wants to be discharged. Spoke with technical planner to make arrangements to discharge him tomorrow. MANAGEMENT PLAN: Discharge him tomorrow to [facility] TIME SPENT: 15 minutes Vital Signs Vital Signs Date Time Temp Pulse Resp B/P (MAP) Pulse Ox O2 Delivery O2 Flow Rate FiO2 08/21/18 18:00 97.7 76 18 147/92 (110) 08/19/18 19:48 99 Room Air Current Medications Current Medications Acetaminophen (Tylenol Tab) 650 mg Q6HP PRN PO HEADACHE or DISCOMFORT; Start 08/19/18 at 20:45 Al Hydrox/Mg Hydrox/Simethicone (Mylanta) 30 ml Q4HP PRN PO HEARTBURN/INDIGESTION; Start 08/19/18 at 20:45 Aspirin (Ecotrin) 81 mg QHS PO Last administered on 08/21/18at 21:56; Start 08/20/18 at 00:39 Atorvastatin Calcium (Lipitor) 40 mg DAILY PO Last administered on 08/22/18at 08:48; Start 08/20/18 at 09:00 Dextrose (Dextrose 50%) 25 ml ASDIRECTED PRN IV SEE LABEL COMMENTS; Start 08/20/18 at 10:30 Glucagon (Glucagon) 1 mg ASDIRECTED PRN SC SEE LABEL COMMENTS; Start 08/20/18 at 10:30 Glucose (Glucose) 16 GM ASDIRECTED PRN PO SEE LABEL COMMENTS; Start 08/20/18 at 10:30 Home Med (Med Rec Complete!) ASDIRECTED XX ; Start 08/19/18 at 16:30; Stop 08/19/18 at 16:30; Status DC Hydrochlorothiazide (Hydrodiuril) 25 mg DAILY PO ; Start 08/20/18 at 09:00 Insulin Human Lispro (HumaLOG INSULIN) See Protocol Table AC SC Last administered on 08/21/18at 16:43; Start 08/20/18 at 12:00 Insulin Human Lispro (HumaLOG INSULIN) See Protocol Table QHS SC ; Start 08/20/18 at 21:00 Insulin Human Regular (HumuLIN R INSULIN) 12 units STAT STAT SC Last administered on 08/19/18at 16:10; Start 08/19/18 at 16:10; Stop 08/19/18 at 16:12; Status DC Lisinopril (Prinivil) 40 mg DAILY PO Last administered on 08/22/18at 08:48; Start 08/20/18 at 09:00 Magnesium Hydroxide (Milk Of Magnesia) 30 ml DAILYPRN PRN PO CONSTIPATION; Start 08/19/18 at 20:45 Metformin HCl (Glucophage Xr) 500 mg QHS PO ; Start 08/20/18 at 21:00; Stop 08/22/18 at 11:24; Status DC Metformin HCl (Glucophage) 500 mg DAILY@18 PO ; Start 08/22/18 at 18:00 Nicotine (Nicoderm Cq 21mg) 1 patch DAILY TD ; Start 08/20/18 at 09:00 Olanzapine (ZyPREXA) 10 mg QHS PO Last administered on 08/21/18at 21:56; Start 08/20/18 at 21:00 Paliperidone Palmitate (Invega Sustenna) 156 mg Q30D IM ; Start 08/21/18 at 09:00; Status Cancel Paliperidone Palmitate (Invega Sustenna) 234 mg Q30D IM Last administered on 08/21/18at 11:56; Start 08/21/18 at 09:00 Trazodone HCl (Desyrel) 50 mg QHSP PRN PO INSOMNIA; Start 08/19/18 at 20:45 Allergies Coded Allergies: Ambrosia Artemisiifolia (Ragweed) (Verified Allergy, Unknown, 10/08/12) Ascorbic Acid & Derivatives (Verified Allergy, Unknown, 10/08/12) Benztropine (Verified Allergy, Unknown, 10/08/12) Pork (Verified Allergy, Unknown, 12/30/06) Red Dye (Verified Allergy, Unknown, IN BENADRYL, 10/08/12) Diphenhydramine (Verified Adverse Reaction, Unknown, 04/26/17) Haloperidol (Verified Adverse Reaction, Unknown, EPS (CAN'T STOP MOVING), 10/08/12) VU GOULD MD Aug 22, 2018 16:47
--- NOTE | 2018-08-26 22:42 | MHDSPDOC ---
[facility] Discharge Summary Discharge Summary DATE OF ADMISSION: Aug 19, 2018 at 20:36 DATE OF DISCHARGE: Aug 23, 2018 at 15:00 DISCHARGE DIAGNOSES: 1. Paranoid schizophrenia REASON FOR ADMISSION: As per ED report: "I was coughing up blood" History of Present Illness HISTORY OF THE PRESENT ILLNESS: Patient is a 58 -year-old , male, who as per ED report: "Patient arrived w/complaints of cardiac issues, which have been evaluated & cleared medically. During medical evaluation he reported having spiders inside of his body, as well as other bizarre/deluded ideas. During MHE patient was calm & sleepy, although remained awake to adequately interview. He continued to express belief that he has spiders throughout his upper body, including "nests" in his nasal passages & "colonies" feeding on meat lodged in his esophagus. Patient was able to accurately verbalize his orientation x 3, however much of what he reported otherwise was rambling, tangential & incoherent. Staff from [facility] advised that patient has been refusing some of his regular meds, which patient admitted as well. He then proceeded to offer a reason for this, which contained no logic & could not be easily followed. On dir ect query, patient stated that he has been sleeping fine, however staff member refuted this & suggested that patient has not been sleeping well at all. Patient is known to this writer producer from many previous ED interactions. When ill (both acutely & chronically), patient almost always references spiders in one way or another. Staff reports that patient had been at his baseline & doing well until fairly recently, when he began refusing some meds. She reports that he has been in decline since, noting that he was actually scheduled for his IM meds in he clinic today (which he missed because he was here).". CONSULTANTS INVOLVED: None TREATMENT AND PROGRESS ON THE UNIT : Upon initial evaluation, the patient was extremely disorganized, he had bizarre delusions, he thought that there were spiders that were eating up his cheek and work clamping his esophagus and for that reason he had been coughing up blood. His judgment and insight were extremely impaired, he could not see that he needed his medications and he kept refusing all of them including medications for his medical problems. However, staff and this writer producer told him that if he accepted to take his Invega long- acting injectable he could be discharged home, provided that he improved. He gave a lot of excuses and he said that unless that he was given the right leg is in his salads he would accept to take the long-acting injectable. He has been refusing to eat to and I explained that there were different meals that didn't contain lettuce so he could order other type of food and then he could have his medication. I also told him that because he was injected it will not affect his gastrointestinal tract. He then accepted that afternoon but he accepted it the next day and instead of giving him 156 mg IM, this writer producer ordered for 234 mg IM. He has been receiving 156 mg at [facility] and this writer producer considered that it was a small dose for them level of psychotic behavior that he presented at this time and on previous hospitalizations. The patient had a history of being extremely aggressive but he was not physically violent or aggressive this time to staff members or to patient's. He was becoming verbally aggressive because he was not being discharged but his aggressiveness was manifested as yelling at people. On the day of his discharge, the patient was very patient, pleasant and cooperative with staff and as a matter of fact he apologized for being angry and he said he didn't want people to think that he was a mean person because he always had that problem of lashing out to people and becoming angry. This writer producer told him that we'll understood that it was part of his illness. HOSPITAL COURSE: As above DISCHARGE ASSESSMENT: At the time of his discharge the patient was not homicidal and was not suicidal. He still exhibited some psychotic features, mild paranoid thoughts that according to staff is his baseline. He had improved significantly since he received his Invega long-acting injectable for 234 mg because he was not as circumstantial and not as tangential as he was when he was admitted. His thoughts were much more organized, his paranoid thoughts had decreased and he denied having auditory and visual hallucinations at that time. MENTAL STATUS EXAMINATION ON DISCHARGE: General Appearance: unkempt, disheveled, personal clothes, fair eye contact Build: overweight Demeanor: He is less guarded, more cooperative, he has guilty feelings about being loud and angry. He apologized for it Eye Contact: intense Activity: Cooperative, pleasant, guilty about being angry the previous day, not hyperactive and not hypoactive either Behavior: cooperative, pleasant Speech: Spontaneous and fluent, normal rate, tone and volume Mood: Happy about going home Affect: Less labile, congruent with mood Thought Process: incoherent, circumstantial, tangential, loose Thought Content (Delusions): His somatic delusions have decreased Thought Content (Other): Goal directed about what he wants to do once he goes back to [facility]. She reports feeling less paranoid today Thought Content (Aggressive): none reported Perception (Hallucinations): Denies auditory and visual hallucinations Perception (Other): none reported Cognition (Impairment of): memory, attention/concentration Cognition(Intelligence Est.): average Oriented: Awake, Alert Insight: poor Judgment: Poor Psychosis: Associations, Abstract Thinking, Psychotic Perceptions have impr azeem. Diagnoses 1. Paranoid schizophrenia MEDICATIONS ON DISCHARGE: Scheduled (Aspirin) 81 Mg Chw, 81 MG PO QHS, (Reported) Atorvastatin Calcium (Atorvastatin Calcium) 40 Mg Tab, 40 MG PO DAILY for 30 Days, #30 (Reported) Hydrochlorothiazide (Hydrochlorothiazide) 25 Mg Tab, 25 MG PO DAILY, (Reported) Lisinopril (Lisinopril) 40 Mg Tab, 40 MG PO DAILY, (Reported) Metformin Hydrochloride (Metformin HCl ER) 500 Mg Tab, 500 MG PO QHS, (Reported) Olanzapine (Zyprexa) 10 Mg Tab, 10 MG PO QHS, (Reported) Paliperidone Palmitate (Invega Sustenna) 234 Mg/1.5 Ml Inj, 234 MG IM Q30D for psychosis, #1 Patient's injection is due on 09/18/2018 (for 234 mgs) Scheduled PRN Trazodone HCl (Trazodone HCl) 50 Mg Tab, 50 MG PO QHSP PRN for INSOMNIA, #7 PLAN/FOLLOWUP ARRANGEMENTS: Follow Up Care Education Label * Medical * Medical Follow Up [facility] * Established With This Provider Yes * Therapist DR. STEIN * Date Aug 30, 2018 * Time 13:00 * Follow Up Care Education Label * Mental Health Appt 1 * Mental Health [facility] * Established With This Provider Yes * Therapist JOSH * Date Aug 27, 2018 * Time 08:00 * The amount of time spent in the coordination of care for this patient was approximately 30 minutes. Vital Signs/I&Os Vital Signs Date Time Temp Pulse Resp B/P (MAP) Pulse Ox O2 Delivery O2 Flow Rate FiO2 08/23/18 06:14 98.1 63 18 176/77 (110) Laboratory Data Microbiology Microbiology 08/21/18 Stool Occult Blood (OLGA) - Final, Complete Medications Scheduled (Aspirin) 81 Mg Chw, 81 MG PO QHS, (Reported) Atorvastatin Calcium (Atorvastatin Calcium) 40 Mg Tab, 40 MG PO DAILY for 30 Days, #30 (Reported) Hydrochlorothiazide (Hydrochlorothiazide) 25 Mg Tab, 25 MG PO DAILY, (Reported) Lisinopril (Lisinopril) 40 Mg Tab, 40 MG PO DAILY, (Reported) Metformin Hydrochloride (Metformin HCl ER) 500 Mg Tab, 500 MG PO QHS, (Reported) Olanzapine (Zyprexa) 10 Mg Tab, 10 MG PO QHS, (Reported) Paliperidone Palmitate (Invega Sustenna) 234 Mg/1.5 Ml Inj, 234 MG IM Q30D for psychosis, #1 Patient's injection is due on 09/18/2018 (for 234 mgs) Scheduled PRN Trazodone HCl (Trazodone HCl) 50 Mg Tab, 50 MG PO QHSP PRN for INSOMNIA, #7 Allergies Coded Allergies: Ambrosia Artemisiifolia (Ragweed) (Verified Allergy, Unknown, 10/08/12) Ascorbic Acid & Derivatives (Verified Allergy, Unknown, 10/08/12) Benztropine (Verified Allergy, Unknown, 10/08/12) Pork (Verified Allergy, Unknown, 12/30/06) Red Dye (Verified Allergy, Unknown, IN BENADRYL, 10/08/12) Diphenhydramine (Verified Adverse Reaction, Unknown, 04/26/17) Haloperidol (Verified Adverse Reaction, Unknown, EPS (CAN'T STOP MOVING), 10/08/12) VU GOULD MD Aug 26, 2018 22:27
== END 2018-08-23 15:00 | disposition home or self-care (01) | DRG 885 ==
LOC: M ED 12:41 → M ED INP 20:36 → M PSY 23:05
PROVIDERS: ADMIT Psychiatry & Neurology Psychiatry; ATTEND Psychiatry & Neurology Psychiatry
DX: F20.0 Paranoid schizophrenia (principal); I10 Essential (primary) hypertension; E78.5 Hyperlipidemia, unspecified; E11.9 Type 2 diabetes mellitus without complications; J30.9 Allergic rhinitis, unspecified; R26.81 Unsteadiness on feet; D64.9 Anemia, unspecified; F17.200 Nicotine dependence, unspecified, uncomplicated; E66.9 Obesity, unspecified; Z68.37 Body mass index [BMI] 37.0-37.9, adult; Z91.14 Patient's other noncompliance with medication regimen; Z79.84 Long term (current) use of oral hypoglycemic drugs; Z79.82 Long term (current) use of aspirin; Z88.8 Allergy status to other drugs, medicaments and biological substances; Z79.899 Other long term (current) drug therapy; Z91.018 Allergy to other foods; Z91.048 Other nonmedicinal substance allergy status

== ENCOUNTER → 2019-02-19 | Outpatient (REF) | payer MEDICARE, MEDICAID ==
[~2019-02-19] MED LIST changes: -ASPI81CH PO; +ASPI81CH49 PO; +ATOR40TA75 PO; +CHLOROTHIAZIDE PO; +HYDR25TAB PO; +HYDROCHLOROTHIAZIDE PO; +INVE156I IM; +INVE234I IM; +LISI40TA PO; +METF500T4 PO; +METFORMIN PO; +TRAZ1TAB10 PO; +ZYPR10TA PO
[2019-02-19 17:24] LABS: CREATININE, URINE < 13.0 MG/DL
== END ==
LOC: M LAB REF 16:35
PROVIDERS: ATTEND Nurse Practitioner Family
DX: Z00.01 Encounter for general adult medical examination with abnormal findings (principal)

== ENCOUNTER 2019-04-18 14:20 | Emergency (ER) | payer MEDICARE, MEDICAID ==
[~2019-04-18 14:20] MED LIST changes: +METF-791 PO; -METF500T4 PO
[2019-04-18] MEDS ORDERED: NS 1,000 ML IV ONE (16:15)
--- NOTE | 2019-04-18 16:38 | REP ---
Portable chest, 04:18 p.m., single AP view with the patient upright: Comparison is 08/19/2018. The lung weber are clear. The cardiac size is normal. The anna marie, mediastinum, and skeletal structures are unremarkable. Impression: Negative portable chest. Electronically Signed by Sb Escalante MD 04/18/2019 04:29 P
[2019-04-18 16:40] LABS: VENOUS BASE EXCESS 1.9 (-2.0-2.0); VENOUS HCO3 26.7 MEQ/L (23.0-27.0); VENOUS O2 SATURATION 99.1 % (60.0-80.0); VENOUS PARTIAL PRESSURE CO2 42.5 mmHg (38.0-50.0); VENOUS PH 7.416 UNITS (7.330-7.430); VENOUS STANDARD HCO3 26.2 MEQ/L
[2019-04-18 16:46] LABS: BASO # 0.1 10^3/uL (0.0-0.2); BASO % 0.8 % (0.0-1.0); EOS # 0.3 10^3/uL (0.0-0.5); EOS % 3.6 % (0.0-3.0); HEMATOCRIT 41.6 % (42.0-52.0); HEMOGLOBIN 14.1 g/dl (13.5-17.5); LYMPH # 2.9 10^3/uL (1.5-5.0); LYMPH % 30.4 % (24.0-44.0); MEAN CORPUSCULAR HGB CONC 33.9 g/dl (32.0-36.5); MEAN CORPUSCULAR VOLUME 91.4 fl (80.0-96.0); MONO % 10.8 % (0.0-5.0); NEUTROPHILS # 5.1 10^3/uL (1.5-8.5); PLATELET COUNT, AUTOMATED 207 10^3/uL (150-450); RED BLOOD COUNT 4.55 10^6/uL (4.30-6.10); WHITE BLOOD COUNT 9.4 10^3/uL (4.0-10.0)
[2019-04-18 17:08] LABS: HEMOGLOBIN A1c 13.9 %
[2019-04-18 17:09] LABS: OSMOLALITY SERUM 295 MOSM/KG (275-295)
[2019-04-18 17:26] LABS: ACETONE/KETONE 0.81 MG/DL (<2.81); ALBUMIN 3.1 GM/DL (3.2-5.2); ALT/SGPT 30 U/L (12-78); BILIRUBIN,DIRECT < 0.1 MG/DL (0.0-0.2); BILIRUBIN,TOTAL 0.4 MG/DL (0.2-1.0); BLOOD UREA NITROGEN 18 MG/DL (7-18); CALCIUM LEVEL 8.9 MG/DL (8.5-10.1); CARBON DIOXIDE LEVEL 25 MEQ/L (21-32); CHLORIDE LEVEL 101 MEQ/L (98-107); CK-MB VALUE MASS 5.5 NG/ML (<3.6); CPK CREATINE PHOSPHOKINASE 189 U/L (39-308); CREATININE FOR GFR 1.07 MG/DL (0.70-1.30); GLOMERULAR FILTRATION RATE > 60.0 (>56); GLUCOSE, FASTING 377 MG/DL (70-100); MB/CK RELATIVE INDEX 2.91 (< OR =4); POTASSIUM SERUM 4.2 MEQ/L (3.5-5.1); SODIUM LEVEL 135 MEQ/L (136-145); TOTAL PROTEIN 6.6 GM/DL (6.4-8.2); TROPONIN I 0.02 NG/ML (< 0.10)
[2019-04-18 19:00] VITALS: BP 187/103
[2019-04-18] MEDS ORDERED: LISINOPRIL 40 MG TAB PO ONE (19:15)
[2019-04-18] MEDS ORDERED: metFORMIN (GLUCOPHAGE) 500 MG TAB PO ONE (19:15)
== END 2019-04-18 20:01 | disposition home or self-care (01) ==
LOC: M ED 14:20
DX: E11.65 Type 2 diabetes mellitus with hyperglycemia (principal); I10 Essential (primary) hypertension; F20.9 Schizophrenia, unspecified; Z79.82 Long term (current) use of aspirin; Z79.84 Long term (current) use of oral hypoglycemic drugs; Z79.899 Other long term (current) drug therapy; Z88.8 Allergy status to other drugs, medicaments and biological substances; Z91.14 Patient's other noncompliance with medication regimen

== ENCOUNTER → 2019-05-14 | Outpatient (REF) | payer MEDICARE, MEDICAID ==
[2019-05-15 12:22] LABS: BASO # 0.1 10^3/uL (0.0-0.2); BASO % 1.1 % (0.0-1.0); EOS # 0.4 10^3/uL (0.0-0.5); EOS % 4.6 % (0.0-3.0); HEMATOCRIT 47.4 % (42.0-52.0); HEMOGLOBIN 15.3 g/dl (13.5-17.5); LYMPH # 2.3 10^3/uL (1.5-5.0); LYMPH % 28.8 % (24.0-44.0); MEAN CORPUSCULAR HEMOGLOBIN 30.1 pg (27.0-33.0); MEAN CORPUSCULAR HGB CONC 32.3 g/dl (32.0-36.5); MEAN CORPUSCULAR VOLUME 93.1 fl (80.0-96.0); MONO # 0.7 10^3/uL (0.0-0.8); MONO % 8.9 % (0.0-5.0); NEUTROPHILS # 4.6 10^3/uL (1.5-8.5); PLATELET COUNT, AUTOMATED 195 10^3/uL (150-450); RED BLOOD COUNT 5.09 10^6/uL (4.30-6.10); WHITE BLOOD COUNT 8.1 10^3/uL (4.0-10.0)
[2019-05-15 12:40] LABS: ALBUMIN 3.4 GM/DL (3.2-5.2); ALT/SGPT 34 U/L (12-78); BILIRUBIN,DIRECT < 0.1 MG/DL (0.0-0.2); BILIRUBIN,TOTAL 0.4 MG/DL (0.2-1.0); BLOOD UREA NITROGEN 20 MG/DL (7-18); CALCIUM LEVEL 9.5 MG/DL (8.5-10.1); CARBON DIOXIDE LEVEL 28 MEQ/L (21-32); CHLORIDE LEVEL 104 MEQ/L (98-107); CHOLESTEROL LEVEL 232 MG/DL (<200); CHOLESTEROL RISK RATIO 4.296 (<5); CREATININE FOR GFR 1.17 MG/DL (0.70-1.30); GLOMERULAR FILTRATION RATE > 60.0 (>56); GLUCOSE, FASTING 275 MG/DL (70-100); HDL CHOLESTEROL 54 MG/DL (>40); LDL CHOLESTEROL 142 MG/DL (<100); NON-HDL-C 178 MG/DL; POTASSIUM SERUM 4.4 MEQ/L (3.5-5.1); SODIUM LEVEL 138 MEQ/L (136-145); THYROID STIMULATING HORMONE 0.907 uIU/ML (0.358-3.740); TOTAL 25(OH) VITAMIN D 18.4 NG/ML (30.0-100.0); TOTAL PROTEIN 7.2 GM/DL (6.4-8.2); TRIGLYCERIDES LEVEL 181 MG/DL (<150); VITAMIN B12 LEVEL 810 PG/ML (247-911)
[2019-05-15 12:59] LABS: HEMOGLOBIN A1c 12.7 %
== END ==
LOC: M LABDRAWC 11:45
PROVIDERS: ATTEND Obstetrics & Gynecology
DX: Z51.81 Encounter for therapeutic drug level monitoring (principal); Z13.9 Encounter for screening, unspecified; Z79.82 Long term (current) use of aspirin; Z79.899 Other long term (current) drug therapy

== ENCOUNTER 2021-10-16 16:22 | Inpatient (IN) | payer MEDICARE, MEDICAID ==
[~2021-10-16] VITALS: Ht 175.3 cm; Wt 110.1 kg
[~2021-10-16 16:22] MED LIST changes: +HYDR-3490 PO; -HYDR25TAB PO; +LISI10TA22 PO; -LISI10TA4 PO; -LISI40TA PO; +LISI40TA4 PO; -METF-791 PO; +METF-838 PO; +PANT40TA29 PO; -PANT40TA3 PO
[2021-10-16] MEDS ORDERED: ISOVUE-370 76% 100ML VIAL As Ordered ONE (17:12)
[2021-10-16 17:20] LABS: BASO # 0.1 10^3/uL (0.0-0.2); BASO % 0.5 % (0.0-1.0); EOS # 0.2 10^3/uL (0.0-0.5); EOS % 2.2 % (0.0-3.0); HEMATOCRIT 41.3 % (42.0-52.0); LYMPH % 19.4 % (24.0-44.0); MEAN CORPUSCULAR HGB CONC 33.9 g/dl (32.0-36.5); MEAN CORPUSCULAR VOLUME 88.4 fl (80.0-96.0); MONO # 1.3 10^3/uL (0.0-0.8); MONO % 12.5 % (2.0-8.0); NEUTROPHILS # 6.7 10^3/uL (1.5-8.5); PLATELET COUNT, AUTOMATED 256 10^3/uL (150-450); RED BLOOD COUNT 4.67 10^6/uL (4.30-6.10); WHITE BLOOD COUNT 10.4 10^3/uL (4.0-10.0)
[2021-10-16] MEDS ORDERED: LIDOCAINE 2% 5ML JELLY UROJET TOP ONE (17:20)
[2021-10-16 17:33] LABS: INR 0.88; PROTHROMBIN TIME 12.3 SECONDS (12.7-14.5)
[2021-10-16 17:34] LABS: PARTIAL THROMBOPLASTIN TIME 29.1 SECONDS (25.9-37.0)
[2021-10-16 17:39] LABS: CK-MB VALUE MASS 4.6 NG/ML (<3.6); MB/CK RELATIVE INDEX 3.9 (< OR =4)
[2021-10-16] MEDS ORDERED: AMLO1TAB25 PO (18:12)
[2021-10-16] MEDS ORDERED: TRAD5TAB PO (18:12)
[2021-10-16] MEDS ORDERED: PALI1TAB3 PO (18:12)
[2021-10-16] MEDS ORDERED: CLOP75TA2 PO (18:12)
[2021-10-16] MEDS ORDERED: METF10004 PO (18:12)
[2021-10-16] MEDS ORDERED: HYDR12.55 PO (18:12)
[2021-10-16 18:14] LABS: ACETAMINOPHEN LEVEL < 2.0 UG/ML (10.0-30.0); ALBUMIN 3.2 GM/DL (3.2-5.2); ALT/SGPT 32 U/L (12-78); BILIRUBIN,DIRECT 0.1 MG/DL (0.0-0.2); BILIRUBIN,TOTAL 0.4 MG/DL (0.2-1.0); BLOOD UREA NITROGEN 17 MG/DL (7-18); CALCIUM LEVEL 9.6 MG/DL (8.8-10.2); CARBON DIOXIDE LEVEL 26 MEQ/L (21-32); CHLORIDE LEVEL 107 MEQ/L (98-107); CREATININE FOR GFR 1.13 MG/DL (0.70-1.30); ETHYL ALCOHOL (ETHANOL) 0.004 % (0.000-0.010); GLOMERULAR FILTRATION RATE > 60.0 (>49); GLUCOSE, FASTING 146 MG/DL (70-100); POTASSIUM SERUM 3.7 MEQ/L (3.5-5.1); SALICYLATE LEVEL 1.7 MG/DL (5.0-30.0); SODIUM LEVEL 143 MEQ/L (136-145); TOTAL PROTEIN 7.9 GM/DL (6.4-8.2)
[2021-10-16] MEDS ORDERED: LABETALOL 100MG/20ML VIAL IV STA (18:37)
[2021-10-16] MEDS ORDERED: COMMENTS (18:48)
[2021-10-16] MEDS ORDERED: HOME MED LIST COMPLETE! XX SCH (18:50)
[2021-10-16 19:09] LABS: AMPHETAMINES LEVEL URINE NEGATIVE (NEGATIVE); BARBITURATES URINE NEGATIVE (NEGATIVE); BENZODIAZEPINES URINE NEGATIVE (NEGATIVE); CANNABINOIDS URINE NEGATIVE (NEGATIVE); COCAINE METABOLITE URINE NEGATIVE (NEGATIVE); METHADONE URINE NEGATIVE (NEGATIVE); OPIATES URINE NEGATIVE (NEGATIVE); PHENCYCLIDINE URINE NEGATIVE (NEGATIVE)
[2021-10-16] MEDS ORDERED: hydrALAZINE 20MG/ML 1ML VIAL (J0360 PER 20MG) IV STA (20:43)
[2021-10-16] MEDS ORDERED: hydroCHLOROthiazide 12.5 MG CAPSULE PO ONE (20:55)
[2021-10-16] MEDS ORDERED: amLODIPine 5 MG TAB PO ONE (20:55)
[2021-10-16] MEDS ORDERED: ACETAMINOPHEN TAB 650MG DOSE (2X325MG) PO PRN (21:00)
[2021-10-16 21:16] LABS: RSV AMPLIFICATION NEGATIVE (NEGATIVE)
[2021-10-16] MEDS: DOCUSATE SODIUM 100MG CAPSULE PO SCH (21:37)
[2021-10-16] MEDS: ASPIRIN 81 MG CHEW TABLET PO SCH (21:38)
[2021-10-17] MEDS ORDERED: UNRESOLVED CLARIFICATION ENTRY XX SCH (00:01)
[2021-10-17 00:20] VITALS: BP 180/80
[2021-10-17] MEDS ORDERED: hydrALAZINE 20MG/ML 1ML VIAL (J0360 PER 20MG) IV ONE (02:00)
[2021-10-17 04:00] VITALS: BP 158/62
[2021-10-17 06:08] LABS: HEMATOCRIT 40.1 % (42.0-52.0); HEMOGLOBIN 13.5 g/dl (13.5-17.5); MEAN CORPUSCULAR HEMOGLOBIN 29.9 pg (27.0-33.0); MEAN CORPUSCULAR HGB CONC 33.7 g/dl (32.0-36.5); MEAN CORPUSCULAR VOLUME 88.7 fl (80.0-96.0); PLATELET COUNT, AUTOMATED 227 10^3/uL (150-450); RED BLOOD COUNT 4.52 10^6/uL (4.30-6.10); WHITE BLOOD COUNT 10.4 10^3/uL (4.0-10.0)
[2021-10-17 06:40] LABS: ALBUMIN 2.9 GM/DL (3.2-5.2); ALT/SGPT 39 U/L (12-78); BILIRUBIN,TOTAL 0.6 MG/DL (0.2-1.0); BLOOD UREA NITROGEN 15 MG/DL (7-18); CALCIUM LEVEL 9.4 MG/DL (8.8-10.2); CARBON DIOXIDE LEVEL 29 MEQ/L (21-32); CHLORIDE LEVEL 104 MEQ/L (98-107); CREATININE FOR GFR 1.07 MG/DL (0.70-1.30); GLOMERULAR FILTRATION RATE > 60.0 (>49); GLUCOSE, FASTING 153 MG/DL (70-100); POTASSIUM SERUM 3.3 MEQ/L (3.5-5.1); SODIUM LEVEL 139 MEQ/L (136-145); TOTAL PROTEIN 6.8 GM/DL (6.4-8.2)
[2021-10-17] MEDS ORDERED: POTASSIUM CHLORIDE 10MEQ SR TABLET PO ONE (07:00)
[2021-10-17 08:13] VITALS: BP 168/81
[2021-10-17] MEDS: KCL 10MEQ/100ML SWI (KRUN) 10 MEQ in IV 1 EA IV SCH ×2 (08:20→09:35)
[2021-10-17] MEDS: ENOXAPARIN 40MG/0.4ML SYRINGE (J1650 PER 10MG) SC SCH (08:22)
[2021-10-17] MEDS: DOCUSATE SODIUM 100MG CAPSULE PO SCH ×2 (08:22→20:17)
[2021-10-17] MEDS: hydroCHLOROthiazide 12.5 MG CAPSULE PO SCH (08:23)
[2021-10-17] MEDS: lisinopriL 40MG TAB PO SCH (08:23)
[2021-10-17] MEDS: CLOPIDOGREL 75 MG TAB PO SCH (08:23)
[2021-10-17] MEDS: ATORVASTATIN 20 MG TAB PO SCH (08:24)
[2021-10-17 12:00] VITALS: BP 179/82
[2021-10-17 16:47] VITALS: BP 181/76
[2021-10-17 20:00] VITALS: BP 140/68
[2021-10-17] MEDS: ASPIRIN 81 MG CHEW TABLET PO SCH (20:18)
[2021-10-17] MEDS: OLANZapine 10 MG TAB PO SCH (20:18)
[2021-10-17] MEDS: PALIPERIDONE 6 MG ER TAB (INVEGA) PO SCH (20:18)
[2021-10-17] MEDS: metFORMIN (GLUCOPHAGE) 1000MG TABLET PO SCH (20:19)
[2021-10-18] VITALS: BP 178/90
[2021-10-18] MEDS ORDERED: amLODIPine 5 MG TAB PO ONE (00:45)
[2021-10-18 04:00] VITALS: BP 180/90
[2021-10-18 06:25] LABS: HEMATOCRIT 39.1 % (42.0-52.0); HEMOGLOBIN 13.3 g/dl (13.5-17.5); MEAN CORPUSCULAR VOLUME 91.1 fl (80.0-96.0); PLATELET COUNT, AUTOMATED 215 10^3/uL (150-450); RED BLOOD COUNT 4.29 10^6/uL (4.30-6.10); WHITE BLOOD COUNT 12.6 10^3/uL (4.0-10.0)
[2021-10-18 06:55] LABS: BLOOD UREA NITROGEN 20 MG/DL (7-18); CALCIUM LEVEL 9.3 MG/DL (8.8-10.2); CARBON DIOXIDE LEVEL 27 MEQ/L (21-32); CHLORIDE LEVEL 110 MEQ/L (98-107); CREATININE FOR GFR 1.27 MG/DL (0.70-1.30); GLOMERULAR FILTRATION RATE > 60.0 (>49); GLUCOSE, FASTING 137 MG/DL (70-100); MAGNESIUM LEVEL 1.9 MG/DL (1.8-2.4); SODIUM LEVEL 143 MEQ/L (136-145)
[2021-10-18 08:15] VITALS: BP 166/78
[2021-10-18] MEDS: ENOXAPARIN 40MG/0.4ML SYRINGE (J1650 PER 10MG) SC SCH (09:04)
[2021-10-18] MEDS: hydroCHLOROthiazide 12.5 MG CAPSULE PO SCH ×2 (09:05→20:12)
[2021-10-18] MEDS: ATORVASTATIN 20 MG TAB PO SCH (09:05)
[2021-10-18] MEDS: CLOPIDOGREL 75 MG TAB PO SCH (09:05)
[2021-10-18] MEDS: DOCUSATE SODIUM 100MG CAPSULE PO SCH ×2 (09:05→20:10)
[2021-10-18] MEDS: lisinopriL 40MG TAB PO SCH (09:05)
[2021-10-18] MEDS: metFORMIN (GLUCOPHAGE) 1000MG TABLET PO SCH ×2 (09:05→21:00)
[2021-10-18 11:35] VITALS: BP 162/77
[2021-10-18] MEDS ORDERED: GLUCOSE 4GM CHEW TABLET PO PRN (15:25)
[2021-10-18] MEDS ORDERED: DEXTROSE 50% 50 ML SYRINGE IV PRN (15:25)
[2021-10-18] MEDS ORDERED: GLUCAGON INJ 1MG VIAL SC PRN (15:25)
[2021-10-18 15:30] VITALS: BP 144/69
[2021-10-18 20:00] VITALS: BP 148/71
[2021-10-18] MEDS: ASPIRIN 81 MG CHEW TABLET PO SCH (20:10)
[2021-10-18] MEDS: OLANZapine 10 MG TAB PO SCH (20:12)
[2021-10-18] MEDS: PALIPERIDONE 6 MG ER TAB (INVEGA) PO SCH (21:00)
[2021-10-19] VITALS: BP 150/78
[2021-10-19 04:00] VITALS: BP 161/74
[2021-10-19 06:15] LABS: HEMATOCRIT 40.3 % (42.0-52.0); HEMOGLOBIN 13.2 g/dl (13.5-17.5); MEAN CORPUSCULAR HEMOGLOBIN 29.6 pg (27.0-33.0); MEAN CORPUSCULAR HGB CONC 32.8 g/dl (32.0-36.5); MEAN CORPUSCULAR VOLUME 90.4 fl (80.0-96.0); PLATELET COUNT, AUTOMATED 227 10^3/uL (150-450); RED BLOOD COUNT 4.46 10^6/uL (4.30-6.10); WHITE BLOOD COUNT 10.8 10^3/uL (4.0-10.0)
[2021-10-19 06:34] LABS: BLOOD UREA NITROGEN 19 MG/DL (7-18); CALCIUM LEVEL 9.2 MG/DL (8.8-10.2); CARBON DIOXIDE LEVEL 29 MEQ/L (21-32); CHLORIDE LEVEL 107 MEQ/L (98-107); CREATININE FOR GFR 1.18 MG/DL (0.70-1.30); GLOMERULAR FILTRATION RATE > 60.0 (>49); GLUCOSE, FASTING 131 MG/DL (70-100); MAGNESIUM LEVEL 1.7 MG/DL (1.8-2.4); PHOSPHORUS LEVEL 2.9 MG/DL (2.5-4.9); POTASSIUM SERUM 3.4 MEQ/L (3.5-5.1); SODIUM LEVEL 140 MEQ/L (136-145)
[2021-10-19] MEDS ORDERED: MAG SULF 1GM/100ML (MAG RUN) 1 GM in IV 1 EA IV ONE (06:45)
[2021-10-19 08:00] VITALS: BP 202/78
[2021-10-19] MEDS: ENOXAPARIN 40MG/0.4ML SYRINGE (J1650 PER 10MG) SC SCH (08:27)
[2021-10-19] MEDS: lisinopriL 40MG TAB PO SCH (08:28)
[2021-10-19] MEDS: DOCUSATE SODIUM 100MG CAPSULE PO SCH ×2 (08:28→21:05)
[2021-10-19] MEDS: hydroCHLOROthiazide 12.5 MG CAPSULE PO SCH (08:28)
[2021-10-19] MEDS: metFORMIN (GLUCOPHAGE) 1000MG TABLET PO SCH ×2 (08:28→21:05)
[2021-10-19] MEDS: CLOPIDOGREL 75 MG TAB PO SCH (08:28)
[2021-10-19] MEDS: POTASSIUM CHLORIDE 10MEQ SR TABLET PO SCH ×2 (08:28→21:06)
[2021-10-19] MEDS: ATORVASTATIN 20 MG TAB PO SCH (08:29)
[2021-10-19 12:00] VITALS: BP 172/93
[2021-10-19 16:00] VITALS: BP 181/87
[2021-10-19 20:00] VITALS: BP 172/68
[2021-10-19] MEDS ORDERED: OLANZapine 5 MG TAB PO SCH (21:00)
[2021-10-19] MEDS: PALIPERIDONE 6 MG ER TAB (INVEGA) PO SCH (21:05)
[2021-10-19] MEDS: ASPIRIN 81 MG CHEW TABLET PO SCH (21:06)
[2021-10-19] MEDS ORDERED: hydrALAZINE 20MG/ML 1ML VIAL (J0360 PER 20MG) IV ONE (23:55)
[2021-10-20] VITALS (8 sets, daily range): BP systolic 142–180; BP diastolic 67–88
[2021-10-20 05:04] LABS: HEMATOCRIT 40.3 % (42.0-52.0); HEMOGLOBIN 13.4 g/dl (13.5-17.5); MEAN CORPUSCULAR HEMOGLOBIN 29.8 pg (27.0-33.0); MEAN CORPUSCULAR HGB CONC 33.3 g/dl (32.0-36.5); MEAN CORPUSCULAR VOLUME 89.8 fl (80.0-96.0); PLATELET COUNT, AUTOMATED 233 10^3/uL (150-450); RED BLOOD COUNT 4.49 10^6/uL (4.30-6.10); WHITE BLOOD COUNT 11.7 10^3/uL (4.0-10.0)
[2021-10-20 05:31] LABS: BLOOD UREA NITROGEN 19 MG/DL (7-18); CALCIUM LEVEL 9.5 MG/DL (8.8-10.2); CARBON DIOXIDE LEVEL 27 MEQ/L (21-32); CHLORIDE LEVEL 108 MEQ/L (98-107); CREATININE FOR GFR 1.05 MG/DL (0.70-1.30); GLOMERULAR FILTRATION RATE > 60.0 (>49); GLUCOSE, FASTING 150 MG/DL (70-100); MAGNESIUM LEVEL 1.7 MG/DL (1.8-2.4); PHOSPHORUS LEVEL 2.9 MG/DL (2.5-4.9); POTASSIUM SERUM 3.7 MEQ/L (3.5-5.1); SODIUM LEVEL 141 MEQ/L (136-145)
[2021-10-20] MEDS: **hydrALAZINE HCL** 25 MG TAB PO SCH ×3 (07:10→17:38)
[2021-10-20] MEDS: ENOXAPARIN 40MG/0.4ML SYRINGE (J1650 PER 10MG) SC SCH (09:04)
[2021-10-20] MEDS: MAG SULF 1GM/100ML (MAG RUN) 1 GM in IV 1 EA IV SCH ×2 (10:00→11:25)
[2021-10-20] MEDS: DOCUSATE SODIUM 100MG CAPSULE PO SCH ×2 (10:04→21:11)
[2021-10-20] MEDS: ATORVASTATIN 20 MG TAB PO SCH (10:04)
[2021-10-20] MEDS: lisinopriL 40MG TAB PO SCH (10:04)
[2021-10-20] MEDS: metFORMIN (GLUCOPHAGE) 1000MG TABLET PO SCH ×2 (10:05→21:12)
[2021-10-20] MEDS: CLOPIDOGREL 75 MG TAB PO SCH (10:05)
[2021-10-20] MEDS: ASPIRIN 81 MG CHEW TABLET PO SCH (21:11)
[2021-10-20] MEDS: PALIPERIDONE 3 MG ER TAB (INVEGA) PO SCH (21:12)
[2021-10-21] MEDS: **hydrALAZINE HCL** 25 MG TAB PO SCH ×5 (00:10→23:24)
[2021-10-21 03:49] VITALS: BP 158/74
[2021-10-21 05:01] LABS: HEMATOCRIT 42.5 % (42.0-52.0); HEMOGLOBIN 13.8 g/dl (13.5-17.5); MEAN CORPUSCULAR HEMOGLOBIN 29.7 pg (27.0-33.0); MEAN CORPUSCULAR HGB CONC 32.5 g/dl (32.0-36.5); MEAN CORPUSCULAR VOLUME 91.4 fl (80.0-96.0); PLATELET COUNT, AUTOMATED 254 10^3/uL (150-450); RED BLOOD COUNT 4.65 10^6/uL (4.30-6.10)
[2021-10-21 05:23] LABS: CALCIUM LEVEL 9.8 MG/DL (8.8-10.2); CREATININE FOR GFR 1.46 MG/DL (0.70-1.30); GLOMERULAR FILTRATION RATE 52.1 (>49); PHOSPHORUS LEVEL 3.9 MG/DL (2.5-4.9); POTASSIUM SERUM 3.9 MEQ/L (3.5-5.1)
[2021-10-21 08:00] VITALS: BP 145/77
[2021-10-21] MEDS: ATORVASTATIN 20 MG TAB PO SCH (08:56)
[2021-10-21] MEDS: ENOXAPARIN 40MG/0.4ML SYRINGE (J1650 PER 10MG) SC SCH (08:56)
[2021-10-21] MEDS: DOCUSATE SODIUM 100MG CAPSULE PO SCH ×2 (08:57→20:01)
[2021-10-21] MEDS: lisinopriL 40MG TAB PO SCH (08:57)
[2021-10-21] MEDS: CLOPIDOGREL 75 MG TAB PO SCH (08:57)
[2021-10-21] MEDS: NS 1,000 ML IV SCH ×2 (10:53→23:27)
[2021-10-21] MEDS: cefTRIAXone SOD 1 GM in D5W MINI-BAG PLUS 50 ML IV SCH (10:57)
[2021-10-21 12:00] VITALS: BP 137/76
[2021-10-21] MEDS: metroNIDAZOLE 500 MG in IV 1 EA IV SCH ×2 (12:08→19:31)
[2021-10-21] MEDS: HumaLOG INSULIN (NovoLOG) PER UNIT SC SCH ×3 (12:15→20:02)
[2021-10-21 12:16] LABS: APPEARANCE, URINE HAZY (CLEAR); BACTERIA, URINE AUTO 2+ (NEGATIVE); BILIRUBIN, URINE AUTO NEGATIVE (NEGATIVE); BLOOD, URINE BLOOD NEGATIVE (NEGATIVE); COLOR, URINE YELLOW (YELLOW); GLUCOSE, URINE (UA) AUTO 1+ mg/dL (NEGATIVE); KETONE, URINE AUTO NEGATIVE (NEGATIVE); LEUKOCYTE ESTERASE, URINE AUTO 1+ (NEGATIVE); MUCUS, URINE SMALL (NEGATIVE); NITRITE, URINE AUTO NEGATIVE (NEGATIVE); PROTEIN, URINE AUTO 3+ mg/dL (NEGATIVE); RBC, URINE AUTO 3 /HPF (0-3); SPECIFIC GRAVITY URINE AUTO 1.017 (1.002-1.035); SQUAMOUS EPITHELIAL CELL UR AU 2 /HPF (0-6); TRANSITIONAL EPITHELIAL AUTO <1 /HPF; UROBILINOGEN, URINE AUTO 0.2 mg/dL (0.0-2.0); WBC, URINE AUTO 31 /HPF (0-3)
[2021-10-21 16:25] VITALS: BP 128/65
[2021-10-21 20:00] VITALS: BP 144/71
[2021-10-21] MEDS: ASPIRIN 81 MG CHEW TABLET PO SCH (20:01)
[2021-10-21] MEDS: PALIPERIDONE 3 MG ER TAB (INVEGA) PO SCH (20:02)
[2021-10-21] MEDS: HEPARIN SOD (PORCINE) 5000UNITS/ML 1ML VIAL/SYRINGE SQ SCH (20:58)
[2021-10-22] VITALS (8 sets, daily range): BP systolic 114–166; BP diastolic 50–81
[2021-10-22] MEDS: metroNIDAZOLE 500 MG in IV 1 EA IV SCH ×3 (03:14→19:34)
[2021-10-22] MEDS: **hydrALAZINE HCL** 25 MG TAB PO SCH (05:26)
[2021-10-22] MEDS: HEPARIN SOD (PORCINE) 5000UNITS/ML 1ML VIAL/SYRINGE SQ SCH ×3 (05:29→20:46)
[2021-10-22] MEDS: NS 1,000 ML IV SCH (06:40)
[2021-10-22 07:02] LABS: HEMATOCRIT 39.8 % (42.0-52.0); HEMOGLOBIN 12.9 g/dl (13.5-17.5); MEAN CORPUSCULAR HEMOGLOBIN 29.5 pg (27.0-33.0); MEAN CORPUSCULAR HGB CONC 32.4 g/dl (32.0-36.5); MEAN CORPUSCULAR VOLUME 91.1 fl (80.0-96.0); PLATELET COUNT, AUTOMATED 233 10^3/uL (150-450); RED BLOOD COUNT 4.37 10^6/uL (4.30-6.10)
[2021-10-22 07:28] LABS: BLOOD UREA NITROGEN 29 MG/DL (7-18); CALCIUM LEVEL 9.1 MG/DL (8.8-10.2); CARBON DIOXIDE LEVEL 28 MEQ/L (21-32); CHLORIDE LEVEL 108 MEQ/L (98-107); CREATININE FOR GFR 1.26 MG/DL (0.70-1.30); GLOMERULAR FILTRATION RATE > 60.0 (>49); GLUCOSE, FASTING 135 MG/DL (70-100); MAGNESIUM LEVEL 1.8 MG/DL (1.8-2.4); POTASSIUM SERUM 3.5 MEQ/L (3.5-5.1); SODIUM LEVEL 141 MEQ/L (136-145)
[2021-10-22] MEDS: HumaLOG INSULIN (NovoLOG) PER UNIT SC SCH ×4 (07:29→20:41)
[2021-10-22] MEDS: cefTRIAXone SOD 1 GM in D5W MINI-BAG PLUS 50 ML IV SCH (10:30)
[2021-10-22] MEDS: ATORVASTATIN 20 MG TAB PO SCH (10:30)
[2021-10-22] MEDS: CLOPIDOGREL 75 MG TAB PO SCH (10:32)
[2021-10-22] MEDS: lisinopriL 40MG TAB PO SCH (10:35)
[2021-10-22] MEDS: DOCUSATE SODIUM 100MG CAPSULE PO SCH ×2 (10:40→20:46)
[2021-10-22] MEDS: PALIPERIDONE 3 MG ER TAB (INVEGA) PO SCH (20:46)
[2021-10-22] MEDS: ASPIRIN 81 MG CHEW TABLET PO SCH (20:46)
[2021-10-23] MEDS: metroNIDAZOLE 500 MG in IV 1 EA IV SCH ×3 (03:37→19:40)
[2021-10-23 04:00] VITALS: BP 165/79
[2021-10-23] MEDS: HEPARIN SOD (PORCINE) 5000UNITS/ML 1ML VIAL/SYRINGE SQ SCH ×3 (05:41→20:30)
[2021-10-23 06:09] LABS: BASO # 0.1 10^3/uL (0.0-0.2); EOS # 0.7 10^3/uL (0.0-0.5); EOS % 7.7 % (0.0-3.0); HEMATOCRIT 38.5 % (42.0-52.0); HEMOGLOBIN 12.5 g/dl (13.5-17.5); LYMPH # 2.5 10^3/uL (1.5-5.0); MEAN CORPUSCULAR HEMOGLOBIN 29.3 pg (27.0-33.0); MEAN CORPUSCULAR HGB CONC 32.5 g/dl (32.0-36.5); MEAN CORPUSCULAR VOLUME 90.2 fl (80.0-96.0); MONO # 1.2 10^3/uL (0.0-0.8); MONO % 12.8 % (2.0-8.0); NEUTROPHILS # 4.7 10^3/uL (1.5-8.5); NEUTROPHILS % 51.2 % (36.0-66.0); PLATELET COUNT, AUTOMATED 232 10^3/uL (150-450); RED BLOOD COUNT 4.27 10^6/uL (4.30-6.10); WHITE BLOOD COUNT 9.2 10^3/uL (4.0-10.0)
[2021-10-23 06:44] LABS: ALBUMIN 2.6 GM/DL (3.2-5.2); ALT/SGPT 39 U/L (12-78); BILIRUBIN,TOTAL 0.3 MG/DL (0.2-1.0); BLOOD UREA NITROGEN 22 MG/DL (7-18); CALCIUM LEVEL 9.4 MG/DL (8.8-10.2); CARBON DIOXIDE LEVEL 27 MEQ/L (21-32); CHLORIDE LEVEL 109 MEQ/L (98-107); CREATININE FOR GFR 1.14 MG/DL (0.70-1.30); GLOMERULAR FILTRATION RATE > 60.0 (>49); GLUCOSE, FASTING 127 MG/DL (70-100); MAGNESIUM LEVEL 1.7 MG/DL (1.8-2.4); PHOSPHORUS LEVEL 3.3 MG/DL (2.5-4.9); POTASSIUM SERUM 3.8 MEQ/L (3.5-5.1); SODIUM LEVEL 144 MEQ/L (136-145); TOTAL PROTEIN 6.1 GM/DL (6.4-8.2)
[2021-10-23] MEDS: HumaLOG INSULIN (NovoLOG) PER UNIT SC SCH ×4 (07:30→20:29)
[2021-10-23 08:09] VITALS: BP 160/74
[2021-10-23] MEDS: lisinopriL 40MG TAB PO SCH (08:55)
[2021-10-23] MEDS: MAG SULF 1GM/100ML (MAG RUN) 1 GM in IV 1 EA IV SCH ×2 (08:55→09:55)
[2021-10-23] MEDS: CLOPIDOGREL 75 MG TAB PO SCH (08:55)
[2021-10-23] MEDS: DOCUSATE SODIUM 100MG CAPSULE PO SCH ×2 (08:55→20:28)
[2021-10-23] MEDS: ATORVASTATIN 20 MG TAB PO SCH (08:55)
[2021-10-23] MEDS: cefTRIAXone SOD 1 GM in D5W MINI-BAG PLUS 50 ML IV SCH (11:26)
[2021-10-23 12:12] VITALS: BP 172/74
[2021-10-23 15:58] VITALS: BP 170/70
[2021-10-23 20:00] VITALS: BP 163/74
[2021-10-23] MEDS: PALIPERIDONE 3 MG ER TAB (INVEGA) PO SCH (20:28)
[2021-10-23] MEDS: ASPIRIN 81 MG CHEW TABLET PO SCH (20:28)
[2021-10-24] MEDS: metroNIDAZOLE 500 MG in IV 1 EA IV SCH ×2 (03:18→11:05)
[2021-10-24 04:00] VITALS: BP 155/70
[2021-10-24] MEDS: HEPARIN SOD (PORCINE) 5000UNITS/ML 1ML VIAL/SYRINGE SQ SCH ×3 (05:20→22:56)
[2021-10-24] MEDS: HumaLOG INSULIN (NovoLOG) PER UNIT SC SCH ×4 (07:30→20:37)
[2021-10-24 08:40] LABS: BASO # 0.1 10^3/uL (0.0-0.2); BASO % 0.8 % (0.0-1.0); EOS # 0.7 10^3/uL (0.0-0.5); EOS % 6.6 % (0.0-3.0); HEMATOCRIT 38.9 % (42.0-52.0); HEMOGLOBIN 13.3 g/dl (13.5-17.5); LYMPH # 2.1 10^3/uL (1.5-5.0); LYMPH % 20.1 % (24.0-44.0); MEAN CORPUSCULAR HEMOGLOBIN 31.1 pg (27.0-33.0); MEAN CORPUSCULAR HGB CONC 34.2 g/dl (32.0-36.5); MEAN CORPUSCULAR VOLUME 90.9 fl (80.0-96.0); MONO # 1.3 10^3/uL (0.0-0.8); NEUTROPHILS # 6.4 10^3/uL (1.5-8.5); PLATELET COUNT, AUTOMATED 256 10^3/uL (150-450); RED BLOOD COUNT 4.28 10^6/uL (4.30-6.10); WHITE BLOOD COUNT 10.6 10^3/uL (4.0-10.0)
[2021-10-24 08:49] VITALS: BP 145/69
[2021-10-24] MEDS: ATORVASTATIN 20 MG TAB PO SCH (08:51)
[2021-10-24] MEDS: CLOPIDOGREL 75 MG TAB PO SCH (08:52)
[2021-10-24] MEDS: lisinopriL 40MG TAB PO SCH (08:52)
[2021-10-24] MEDS: DOCUSATE SODIUM 100MG CAPSULE PO SCH ×2 (08:52→20:29)
[2021-10-24 09:04] LABS: BLOOD UREA NITROGEN 20 MG/DL (7-18); CALCIUM LEVEL 9.4 MG/DL (8.8-10.2); CARBON DIOXIDE LEVEL 27 MEQ/L (21-32); CHLORIDE LEVEL 107 MEQ/L (98-107); CREATININE FOR GFR 1.28 MG/DL (0.70-1.30); GLOMERULAR FILTRATION RATE > 60.0 (>49); GLUCOSE, FASTING 231 MG/DL (70-100); MAGNESIUM LEVEL 1.7 MG/DL (1.8-2.4); PHOSPHORUS LEVEL 2.7 MG/DL (2.5-4.9); SODIUM LEVEL 142 MEQ/L (136-145)
[2021-10-24] MEDS ORDERED: MAGNESIUM OXIDE 400MG TAB (MAG-OX) PO ONE (10:10)
[2021-10-24] MEDS: cefTRIAXone SOD 1 GM in D5W MINI-BAG PLUS 50 ML IV SCH (11:04)
[2021-10-24] MEDS: MOM 30ML SUSPENSION UDC PO PRN (14:57)
[2021-10-24 16:00] VITALS: BP 136/77
[2021-10-24 16:16] LABS: FOLATE 8.7 NG/ML (>5.4)
[2021-10-24] MEDS: metroNIDAZOLE (FLAGYL) 500MG TABLET PO SCH ×2 (17:39→20:30)
[2021-10-24 20:00] VITALS: BP 141/70
[2021-10-24] MEDS: ASPIRIN 81 MG CHEW TABLET PO SCH (20:30)
[2021-10-24] MEDS: PALIPERIDONE 3 MG ER TAB (INVEGA) PO SCH (20:30)
[2021-10-25] VITALS: BP 131/66
[2021-10-25 04:00] VITALS: BP 131/66
[2021-10-25] MEDS: HEPARIN SOD (PORCINE) 5000UNITS/ML 1ML VIAL/SYRINGE SQ SCH ×2 (06:00→13:30)
[2021-10-25] MEDS: HumaLOG INSULIN (NovoLOG) PER UNIT SC SCH ×4 (07:30→20:32)
[2021-10-25 08:16] VITALS: BP 154/70
[2021-10-25] MEDS: DOCUSATE SODIUM 100MG CAPSULE PO SCH ×2 (09:02→20:33)
[2021-10-25] MEDS: metroNIDAZOLE (FLAGYL) 500MG TABLET PO SCH ×3 (09:02→20:33)
[2021-10-25] MEDS: ATORVASTATIN 20 MG TAB PO SCH (09:02)
[2021-10-25] MEDS: lisinopriL 40MG TAB PO SCH (09:03)
[2021-10-25] MEDS: CLOPIDOGREL 75 MG TAB PO SCH (09:03)
[2021-10-25 09:25] LABS: BASO # 0.1 10^3/uL (0.0-0.2); EOS # 0.6 10^3/uL (0.0-0.5); EOS % 6.9 % (0.0-3.0); HEMATOCRIT 38.4 % (42.0-52.0); HEMOGLOBIN 12.8 g/dl (13.5-17.5); LYMPH # 2.1 10^3/uL (1.5-5.0); LYMPH % 24.5 % (24.0-44.0); MEAN CORPUSCULAR HEMOGLOBIN 30.3 pg (27.0-33.0); MEAN CORPUSCULAR HGB CONC 33.3 g/dl (32.0-36.5); MEAN CORPUSCULAR VOLUME 90.8 fl (80.0-96.0); MONO % 11.5 % (2.0-8.0); NEUTROPHILS # 4.8 10^3/uL (1.5-8.5); NEUTROPHILS % 55.3 % (36.0-66.0); PLATELET COUNT, AUTOMATED 245 10^3/uL (150-450); RED BLOOD COUNT 4.23 10^6/uL (4.30-6.10); WHITE BLOOD COUNT 8.7 10^3/uL (4.0-10.0)
[2021-10-25 09:54] LABS: BLOOD UREA NITROGEN 21 MG/DL (7-18); CALCIUM LEVEL 9.5 MG/DL (8.8-10.2); CARBON DIOXIDE LEVEL 27 MEQ/L (21-32); CHLORIDE LEVEL 103 MEQ/L (98-107); CREATININE FOR GFR 1.27 MG/DL (0.70-1.30); GLOMERULAR FILTRATION RATE > 60.0 (>49); GLUCOSE, FASTING 338 MG/DL (70-100); MAGNESIUM LEVEL 1.8 MG/DL (1.8-2.4); PHOSPHORUS LEVEL 3.2 MG/DL (2.5-4.9); POTASSIUM SERUM 4.3 MEQ/L (3.5-5.1); SODIUM LEVEL 139 MEQ/L (136-145)
[2021-10-25] MEDS: cefTRIAXone SOD 1 GM in D5W MINI-BAG PLUS 50 ML IV SCH (12:01)
[2021-10-25 16:15] VITALS: BP 168/72
[2021-10-25] MEDS: MOM 30ML SUSPENSION UDC PO PRN (16:35)
[2021-10-25 20:00] VITALS: BP 149/66
[2021-10-25] MEDS: LEVEMIR (INSULIN DETEMIR) 1 UNITS/0.01ML SC SCH (20:32)
[2021-10-25] MEDS: PALIPERIDONE 3 MG ER TAB (INVEGA) PO SCH (20:33)
[2021-10-25] MEDS: ASPIRIN 81 MG CHEW TABLET PO SCH (20:33)
[2021-10-25] MEDS: ENOXAPARIN 40MG/0.4ML SYRINGE (J1650 PER 10MG) SC SCH (20:35)
[2021-10-26] MEDS: HumaLOG INSULIN (NovoLOG) PER UNIT SC SCH ×4 (08:53→20:33)
[2021-10-26] MEDS: CLOPIDOGREL 75 MG TAB PO SCH (08:54)
[2021-10-26] MEDS: ATORVASTATIN 20 MG TAB PO SCH (08:54)
[2021-10-26] MEDS: DOCUSATE SODIUM 100MG CAPSULE PO SCH ×2 (08:54→20:28)
[2021-10-26] MEDS: metroNIDAZOLE (FLAGYL) 500MG TABLET PO SCH ×3 (08:54→20:28)
[2021-10-26 08:57] VITALS: BP 143/67
[2021-10-26] MEDS: lisinopriL 40MG TAB PO SCH (08:57)
[2021-10-26] MEDS: cefTRIAXone SOD 1 GM in D5W MINI-BAG PLUS 50 ML IV SCH (10:42)
[2021-10-26 12:00] VITALS: BP 143/73
[2021-10-26] MEDS: MOM 30ML SUSPENSION UDC PO PRN (15:16)
[2021-10-26 17:10] VITALS: BP 113/54
[2021-10-26 20:00] VITALS: BP 127/60
[2021-10-26] MEDS: PALIPERIDONE 3 MG ER TAB (INVEGA) PO SCH (20:28)
[2021-10-26] MEDS: LEVEMIR (INSULIN DETEMIR) 1 UNITS/0.01ML SC SCH (20:28)
[2021-10-26] MEDS: ENOXAPARIN 40MG/0.4ML SYRINGE (J1650 PER 10MG) SC SCH (20:28)
[2021-10-26] MEDS: ASPIRIN 81 MG CHEW TABLET PO SCH (20:28)
[2021-10-26 20:33] VITALS: BP 127/60
[2021-10-27 05:32] LABS: BASO # 0.1 10^3/uL (0.0-0.2); EOS # 0.6 10^3/uL (0.0-0.5); EOS % 5.4 % (0.0-3.0); HEMATOCRIT 39.4 % (42.0-52.0); HEMOGLOBIN 13.2 g/dl (13.5-17.5); LYMPH # 3.2 10^3/uL (1.5-5.0); LYMPH % 29.3 % (24.0-44.0); MEAN CORPUSCULAR HEMOGLOBIN 29.7 pg (27.0-33.0); MEAN CORPUSCULAR HGB CONC 33.5 g/dl (32.0-36.5); MEAN CORPUSCULAR VOLUME 88.5 fl (80.0-96.0); MONO % 14.5 % (2.0-8.0); NEUTROPHILS # 5.4 10^3/uL (1.5-8.5); PLATELET COUNT, AUTOMATED 251 10^3/uL (150-450); RED BLOOD COUNT 4.45 10^6/uL (4.30-6.10)
[2021-10-27 05:35] LABS: MONO # 1.6 10^3/uL (0.0-0.8)
[2021-10-27 05:57] LABS: ALBUMIN 2.8 GM/DL (3.2-5.2); ALT/SGPT 92 U/L (12-78); BILIRUBIN,TOTAL 0.3 MG/DL (0.2-1.0); BLOOD UREA NITROGEN 27 MG/DL (7-18); CALCIUM LEVEL 9.8 MG/DL (8.8-10.2); CARBON DIOXIDE LEVEL 29 MEQ/L (21-32); CHLORIDE LEVEL 103 MEQ/L (98-107); CREATININE FOR GFR 1.26 MG/DL (0.70-1.30); GLOMERULAR FILTRATION RATE > 60.0 (>49); GLUCOSE, FASTING 147 MG/DL (70-100); MAGNESIUM LEVEL 1.8 MG/DL (1.8-2.4); POTASSIUM SERUM 3.8 MEQ/L (3.5-5.1); SODIUM LEVEL 139 MEQ/L (136-145); TOTAL PROTEIN 6.6 GM/DL (6.4-8.2)
[2021-10-27 08:00] VITALS: BP 115/67
[2021-10-27] MEDS: HumaLOG INSULIN (NovoLOG) PER UNIT SC SCH (08:23)
[2021-10-27] MEDS: DOCUSATE SODIUM 100MG CAPSULE PO SCH (08:23)
[2021-10-27] MEDS: ATORVASTATIN 20 MG TAB PO SCH (08:23)
[2021-10-27] MEDS: CLOPIDOGREL 75 MG TAB PO SCH (08:23)
[2021-10-27] MEDS: metroNIDAZOLE (FLAGYL) 500MG TABLET PO SCH (08:23)
[2021-10-27] MEDS: lisinopriL 40MG TAB PO SCH (08:24)
[2021-10-27] MEDS ORDERED: HYDR12.55 PO (08:50)
[2021-10-27] MEDS ORDERED: LISI40TA4 PO (08:50)
[2021-10-27] MEDS ORDERED: PALI1TAB3 PO (08:50)
== END 2021-10-27 11:00 | DRG 305 ==
LOC: M ED 16:22 → M ED INP 20:59 → ENRESERV 23:13 → M PCU 10-17 00:22
PROVIDERS: ADMIT Family Medicine; ATTEND Family Medicine
DX: I16.0 Hypertensive urgency (principal); F20.0 Paranoid schizophrenia; I67.4 Hypertensive encephalopathy; E11.9 Type 2 diabetes mellitus without complications; Z86.73 Personal history of transient ischemic attack (TIA), and cerebral infarction without residual deficits; Z20.822 Contact with and (suspected) exposure to COVID-19; R33.9 Retention of urine, unspecified; R26.89 Other abnormalities of gait and mobility; I10 Essential (primary) hypertension; E78.5 Hyperlipidemia, unspecified; Z79.82 Long term (current) use of aspirin; Z79.84 Long term (current) use of oral hypoglycemic drugs; Z79.899 Other long term (current) drug therapy; Z88.8 Allergy status to other drugs, medicaments and biological substances; Z91.14 Patient's other noncompliance with medication regimen; K52.9 Noninfective gastroenteritis and colitis, unspecified; I72.9 Aneurysm of unspecified site; R91.8 Other nonspecific abnormal finding of lung field; R05.9 Cough, unspecified